=== PATIENT | male | born 1930 | race Caucasian/White ===

== ENCOUNTER 2017-01-25 09:53 | Inpatient (IN) | payer MEDICARE ==
[~2017-01-25] VITALS: Ht 190.5 cm; Wt 103.0 kg
[~2017-01-25 09:53] MED LIST: ACCUPRIL5 MG PO; AMOXICILLIN500 MG PO; ARAVA20 MG PO; BABY ASPIRIN81 MG PO; BACTRIM DS1 TAB PO; CALCIUM CHEL1 CAP OR; CEFEPIME2 G2 IV; CIPROFLOXACN500 MG PO; CLINDAMYCIN150 MG PO; CYANOCOBALAM1000 MC1 IM; CYANOCOBALAM1000 MCG IM; CYMBALTA20 MG PO; CYMBALTA60 MG PO; ENOXAPARIN40 MG/0.1 SC; EYE VITAMINS OR; FERROUS SULF325 M1 PO; FISH OIL1000 MG PO; FLORASTOR250 M1 PO; FLUZONE SPLT1 M1 IM; FOLIC ACID1 MG PO; HEPARIN IV; KEFLEX250 MG PO; LEFLUNOMIDE10 MG OR; LISINOP/HCTZ1 TA2 PO; LISINOPRIL10 MG PO; LORTAB 5/3255 MG PO; MAG-OXIDE400 MG PO; METFORMIN500 MG PO; METHOTREXATE2.5 MG PO; MILLIPRED5 MG PO; NIACIN500 M2 OR; NORMAL SALIN0.91; ONDANSETRON4 MG PO; PERCOCET 10/31 COMBO PO; PRESERVISION OR; PRILOSEC20 MG PO; ROCEPHIN 1 GM1 GM IM; STERAPRED OR; TAMSULOSIN0.4 MG PO; ULTRAM50 MG PO; VITAM PO; VITAMIN B-121000 MC1 SL; ZOSTAVAX IM; [UNRECOGNIZED DRUG - OTHER] IV
--- NOTE | 2017-01-25 10:07 | NUR ---
PATIENT TO ROOM VIA EMS AND PHYSICIAN AT BEDSIDE FOR EVALUATION
[2017-01-25] MEDS ORDERED: DOXYCYCLINE100 MG (10:18)
[2017-01-25] MEDS ORDERED: GLIPIZIDE ER5 M1 PO (10:19)
[2017-01-25] MEDS ORDERED: PRILOSEC20 MG PO (10:20)
[2017-01-25] MEDS ORDERED: TAMSULOSIN0.4 MG PO (10:21)
[2017-01-25 10:34] LABS: HEMATOCRIT 30.3 % (39.0-50.0); HEMOGLOBIN 9.9 g/dl (14.0-18.0); IMMATURE GRANULOCYTES 0.8 % (0.0-1.0); MEAN CELL VOLUME 101.3 fL CALC (80.0-100.0); MEAN CORPUSCULAR HGB 33.1 pG CALC (26.0-32.0); MEAN CORPUSCULAR HGB CONC 32.7 g/L CALC (32.0-36.0); NEUT# 16.93 thou/uL (1.82-7.42); RED BLOOD COUNT 2.99 mill/uL (4.70-6.10); RED CELL DISTRI WIDTH 15.2 % (11.5-15.5)
--- NOTE | 2017-01-25 10:58 | NUR ---
PT RETURNED FROM RADIOLOGY AWAITING TEST RESULTS. IV FLUIDS CONTINUE SITE HEALTHY.
[2017-01-25 11:02] LABS: ALBUMIN 3.6 g/dL (3.2-5.0); ALKALINE PHOSPHATASE 102 u/l (38-126); ANION GAP 19 (6-22 (CALC)); BILIRUBIN, TOTAL 0.5 mg/dL (0.0-1.4); BUN 51 mg/dL (8-23); BUN/CREATININE RATIO 34 (12-20 (CALC)); CARBON DIOXIDE 22 mmol/l (22-30); CHLORIDE 103 mmol/l (95-108); CREATININE 1.5 mg/dL (0.7-1.3); GFR 45 ML/MIN (>=60 (CALC)); GFR FOR AFR.AMER. 54 ML/MIN (>=60 (CALC)); GLUCOSE 124 mg/dL (82-115); POTASSIUM 4.9 mmol/l (3.5-5.1); SGOT/AST 26 u/l (19-48); SGPT/ALT 26 u/l (11-66); SODIUM 139 mmol/l (137-146)
[2017-01-25 11:14] LABS: MYOGLOBIN 125 ng/mL (0 - 121)
--- NOTE | 2017-01-25 11:40 | NUR ---
URINE SPECIMEN COLLECTED FROM URINAL. IV FLUIDS CONTINUE. TEMP TRENDING DOWN AT 101.2 TYMPANIC.
[2017-01-25 11:47] LABS: URINE BILIRUBIN - DIPSTICK NEGATIVE (NEGATIVE); URINE BLOOD DIPSTICK NEGATIVE (NEGATIVE); URINE CLARITY CLEAR; URINE COLOR YELLOW; URINE GLUCOSE - DIPSTICK NEGATIVE (NEGATIVE); URINE KETONE TRACE mg/dL (NEGATIVE); URINE LEUK ESTERASE NEGATIVE (NEGATIVE); URINE NITRITE - DIPSTICK NEGATIVE (Negative); URINE PH 5.5 (4.5-8.0); URINE PROTEIN - DIPSTICK NEGATIVE (NEG-TRACE); URINE UROBILINOGEN - DIPSTICK 0.2 E.U./dL (0.2)
--- NOTE | 2017-01-25 12:30 | NUR ---
PT REQUESTING PO FLUIDS. PT TOLERATED WELL.
--- NOTE | 2017-01-25 13:21 | NUR ---
SBAR PRINTED TO FLOOR
--- NOTE | 2017-01-25 13:30 | NUR ---
IV ABT INFUSING SITE HEALTHY. SPOUSE AT BEDSIDE.
--- NOTE | 2017-01-25 14:15 | NUR ---
REPORT CALLED TO MALIA STEPHEN.
--- NOTE | 2017-01-25 14:50 | NUR ---
PT TO ROOM VIA STRETCHER ACCOMPANIED BY STAFF; PT X3 PERSON TX TO BED; PT A/O X2; PT C/O PAIN 07/10 TO LEFT ANKLE DOES NOT WANT PAIN MED AT THIS TIME; PT STATES FALL AT HOME APPORX 2 WEEKS AGO; LLE WITH 4+ PE; O2 2L VIA NC; CRACKLES THROUGHOUT LUNGS; TELE MONITOR IN PLACE; PT ORIENTED TO ROOM AND CALL SYSTEM; CALL LEE WITHIN REACH; WILL CONTINUE TO MONITOR.
--- NOTE | 2017-01-25 15:13 | NUR ---
S: CATHERINE CHAN is a 86 M who presents with pneumonia. He has a history of arthritis, HTN, and COPD. All medications in patient's chart were reviewed. O: VS: BP 124/67, P 95 W 105 kg, HT 74 in, Scr 1.5, CrCl 42.6 mL/min A: Blood culture is pending. P: Patient received levofloxacin 750 mg IV x1 dose and Zosyn 3.375 g IV x1 dose in the ED. Pt is also on Zosyn 3.375 g IV q6h. Vancomycin ordered for pharmacy to dose. Start Vancomycin 1.5 g IV q24H. Vancomycin trough is drawn before the 4th dose on 01/28/17 @ 1530. Vancomycin goal trough is between 15-20 mcg/ml. Pharmacy will follow and or advise on antibiotics use as needed. Thanks for the consult.
[2017-01-25 15:40] VITALS: BP 104/65
--- NOTE | 2017-01-25 18:17 | NUR ---
DR. CARPIO CALLED CONCERNING CONSULT; STATES HE PLANS TO DO SX THIS Wednesday02/28/17;
[2017-01-25 19:20] VITALS: BP 132/80
--- NOTE | 2017-01-25 19:44 | NUR ---
PT IN BED A/O X3, REPIRATIONS EVEN AND UNLABORED. NS INFUSING TO RH AT 100CC/HR. AT BED SIDE, STATES PT RECEIVED 2L IV BOLUS IN ER AND HAS ONLY VOIDED 100ML, IS CONCERNED THAT PT NOT ABLE TO VOID. BLADDER SCANNER READING 911ML. DR. ORTIZ NOTIFED, NEW ORDERS RECEIVED FOR STRAIGHT CATH, AND BLADDER SCAN IN FOUR HOURS, IF NOT ABLE TO VOID AT THAT TIME INSERT BANUELOS CATHETER. STRAIGHT CATHED AT 2030 WITH 1050ML OUT PUT. WILL CONTINUE TO MONITOR. POSITIONED TO LEFT SIDE. PO FLUIDS IN REACH.
[2017-01-26] VITALS (7 sets, daily range): BP systolic 141–166; BP diastolic 74–84
--- NOTE | 2017-01-26 00:10 | NUR ---
COMPLETE BED BATH PROVIDED BY CHINO CASTELLANOS.
--- NOTE | 2017-01-26 02:00 | NUR ---
BLADDER SCANNER READING 415, PT DENIES NEED TO VOID, BUT REFUSES BANUELOS CATHETER AT THIS TIME, STATES WILL ATTEMPT TO VOID IN THE NEXT HOUR. WILL CONTINUE TO MONITOR.
--- NOTE | 2017-01-26 04:00 | NUR ---
PT UNABLE TO VOID, 16F BANUELOS CATHETER INSERTED, BALLOON INFLATED WITH 10CC SALINE, TOLERATED WELL. DRAINING 800ML CLEAR YELLOW URINE, LEG STRAP IN PLACE.
[2017-01-26 06:53] LABS: HEMATOCRIT 24.3 % (39.0-50.0); HEMOGLOBIN 8.1 g/dl (14.0-18.0); IMMATURE GRANULOCYTES 1.3 % (0.0-1.0); MEAN CELL VOLUME 100.4 fL CALC (80.0-100.0); MEAN CORPUSCULAR HGB 33.5 pG CALC (26.0-32.0); MEAN CORPUSCULAR HGB CONC 33.3 g/L CALC (32.0-36.0); NEUT# 19.42 thou/uL (1.82-7.42); RED BLOOD COUNT 2.42 mill/uL (4.70-6.10); RED CELL DISTRI WIDTH 14.9 % (11.5-15.5)
[2017-01-26 07:00] LABS: ANION GAP 15 (6-22 (CALC)); BUN 39 mg/dL (8-23); BUN/CREATININE RATIO 37 (12-20 (CALC)); CALCIUM 8.6 mg/dL (8.4-10.2); CARBON DIOXIDE 21 mmol/l (22-30); CHLORIDE 108 mmol/l (95-108); GFR > 60 ML/MIN (>=60 (CALC)); GFR FOR AFR.AMER. > 60 ML/MIN (>=60 (CALC)); GLUCOSE 155 mg/dL (82-115); HDL CHOLESTEROL 21 mg/dL (>=40); MAGNESIUM 1.8 mg/dL (1.6-2.3); POTASSIUM 4.5 mmol/l (3.5-5.1); SODIUM 140 mmol/l (137-146); VLDL CHOLESTROL 11 mg/dl (0-38 (CALC))
[2017-01-26 07:13] LABS: TOTAL TRIGLYCERIDES 56 mg/dl (30-149)
[2017-01-26 07:19] LABS: TOTAL CHOLESTEROL < 50 mg/dl (0-199)
--- NOTE | 2017-01-26 08:18 | NUR ---
PT.EATING BREAKFAST AT THIS TIME, DENIES ANY OTHER NEEDS. PT.V/S ASSESSED AND AM MEDICATIONS ADMINISTERED. PT.INSTRUCTED TO CALL FOR ANY NEEDS THAT MAY ARISE
--- NOTE | 2017-01-26 13:25 | NUR ---
PT.ARRIVED TO FLOOR IN GOOD CONDITION, ORIENTED TO ROOM,CALL SYSTEM, TV AND LIGHTS. WILL F/UP WITH ASSESSMENT AND ADMISSION
--- NOTE | 2017-01-26 13:37 | NUR ---
PT.IV FLUIDS REPLACED, PT.DENIES ANY NEEDS. BANUELOS CATHETER STRAP IN PLACE, SKIN INTACT AND DRAINING CLEAR YELLOW URINE; O2NC IN PLACE. IS AT BS AND CALL LIGHT W/IN REACH
--- NOTE | 2017-01-26 20:37 | NUR ---
PT POSITIONED TO LEFT SIDE ABLE TO ASSIST WITH TURNING, C/O GENERALIZED PAIN 6/10, MEDICATED WITH SCHEDULED ULTRAM AND FLEXERIL. LEGS ELEVATED ON PILLOWS, BANUELOS CATHETER DRAINING CLEAR YELLOW URINE. IV FLUIDS INFUSING TO RFA WITH NO COMPLICATIONS. ENCOURAGED TO USE CALL LIGHT FOR ASSISTANCE.
--- NOTE | 2017-01-27 00:59 | NUR ---
REPOSITIONED TO RIGHT SIDE, TELE READING SR 70'S OFFERS NO CONCERNS.
--- NOTE | 2017-01-27 03:00 | NUR ---
TURNED TO LEFT SIDE, RESPIRATIONS EVEN AND UNLABORED, CALL LIGHT IN REACH.
[2017-01-27 04:01] VITALS: BP 157/89
[2017-01-27 06:30] LABS: HEMATOCRIT 25.1 % (39.0-50.0); HEMOGLOBIN 8.5 g/dl (14.0-18.0); IMMATURE GRANULOCYTES 0.8 % (0.0-1.0); MEAN CELL VOLUME 99.2 fL CALC (80.0-100.0); MEAN CORPUSCULAR HGB 33.6 pG CALC (26.0-32.0); MEAN CORPUSCULAR HGB CONC 33.9 g/L CALC (32.0-36.0); NEUT# 15.26 thou/uL (1.82-7.42); RED BLOOD COUNT 2.53 mill/uL (4.70-6.10); RED CELL DISTRI WIDTH 14.6 % (11.5-15.5)
[2017-01-27 06:51] LABS: ANION GAP 15 (6-22 (CALC)); BUN 32 mg/dL (8-23); BUN/CREATININE RATIO 28 (12-20 (CALC)); CALCIUM 8.4 mg/dL (8.4-10.2); CARBON DIOXIDE 20 mmol/l (22-30); CHLORIDE 111 mmol/l (95-108); CREATININE 1.1 mg/dL (0.7-1.3); GFR > 60 ML/MIN (>=60 (CALC)); GFR FOR AFR.AMER. > 60 ML/MIN (>=60 (CALC)); GLUCOSE 129 mg/dL (82-115); MAGNESIUM 1.8 mg/dL (1.6-2.3); POTASSIUM 4.3 mmol/l (3.5-5.1); SODIUM 142 mmol/l (137-146)
[2017-01-27 08:10] VITALS: BP 142/77
--- NOTE | 2017-01-27 08:19 | NUR ---
PT.UPRIGHT IN BED W/FEET ELEVATED, LOCX3, AM MEDICATIONS ADMINISTERED AND V/S ASSESSED; PT. BREAKFAST HAS BEEN SET UP; PT.USED BED MORSE TO ATTEMPT BM, NO BM/CLUMP OF RED COAGULATED BLOOD ABOUT 4X2CM WAS IN THE BED MORSE WHEN EMPTIED. IV SITE APPEARS HEALTHY WITH IV FLUIDS RUNNING. PT.IS LEFT EATING BREAKFAST WITH CALL LIGHT NEXT TO HIM
--- NOTE | 2017-01-27 08:24 | NUR ---
PT.DID NOT TAKE ASPIRIN DUE TO UPCOMING SURGERY, STATED HE WAS TOLD NOT TO TAKE IT.
[2017-01-27 11:06] VITALS: BP 138/72
--- NOTE | 2017-01-27 13:05 | NUR ---
PT.UPRIGHT IN BED EATING LUNCH, PT.MEDICATED ORDERS PROVIDE, NEW FLUIDS AND ANTIBIOTIC THERAPY ADMINISTERED. PT.DENIES ANY OTHER NEEDS AT THIS TIME, IS AT BS
--- NOTE | 2017-01-27 14:13 | NUR ---
P.T. WORKED WITH PT. AND PT.IS NOW IN BED ASLEEP WITH IN CHAIR AT BS NAPPING ALSO. NO S/S OF DISTRESS OR PAIN
--- NOTE | 2017-01-27 14:22 | NUR ---
PT WAS SEEN SUPINE ON BED WITH L LEG ELEVATED ON PILLOWS. ADJUSTED THE BACK REST HIGHER. DID AAROM EX ON B UE ON ALL PPLANES. ALSO DID QUADS SETTING ON B LE AND ANKLE PUMPS ON R. PT STILL COMPLAINED OF SEVERE PAIN ON L LEG AND ANKLE WITH SLIGHT MOVEMENT. STATES THAT HIS ANKLE SURGERY WILL BE DONE ON WEDNESDAY. ADVISED TO ENCOURAGE PT TO ROLL AND CHANGE POSITIONS TO PREVENT BED SORES AND WORSENING OF PNEUMONIA.
[2017-01-27 15:33] VITALS: BP 136/67
--- NOTE | 2017-01-27 19:00 | NUR ---
RECEIVED CHANGE OF SHIFT REPORT FROM MALIA HENRIQUEZ. PATIENT RESTING IN BED AND APPEARS NOT TO BE IN ANY APPARENT ACUTE DISTRESS. WILL CONTINUE TO MONITOR.
[2017-01-27 20:00] VITALS: BP 149/79
[2017-01-27 23:30] VITALS: BP 112/61
--- NOTE | 2017-01-28 04:00 | NUR ---
PATIENT AWAKE AND ASSISTED UNTO BED MORSE. NO APPARENT ACUTE CHANGES NOTED IN PATIENT'S CONDITION.
--- NOTE | 2017-01-28 04:00 | NUR ---
PATIENT TRESTING WITH EYES CLOSED AND APPEARS TO BE ASLEEP. RESPIRATION EVEN AND UNLABORED. NO APPARENT ACUTE DISTRESS NOTED AT THIS TIME.
[2017-01-28 04:17] VITALS: BP 115/80
[2017-01-28 06:47] LABS: HEMATOCRIT 29.4 % (39.0-50.0); HEMOGLOBIN 9.6 g/dl (14.0-18.0); MEAN CELL VOLUME 98.7 fL CALC (80.0-100.0); MEAN CORPUSCULAR HGB 32.2 pG CALC (26.0-32.0); MEAN CORPUSCULAR HGB CONC 32.7 g/L CALC (32.0-36.0); RED BLOOD COUNT 2.98 mill/uL (4.70-6.10); RED CELL DISTRI WIDTH 14.7 % (11.5-15.5)
[2017-01-28 07:05] LABS: ANION GAP 17 (6-22 (CALC)); BUN 27 mg/dL (8-23); BUN/CREATININE RATIO 25 (12-20 (CALC)); CALCIUM 8.5 mg/dL (8.4-10.2); CARBON DIOXIDE 19 mmol/l (22-30); CHLORIDE 112 mmol/l (95-108); CREATININE 1.1 mg/dL (0.7-1.3); GFR > 60 ML/MIN (>=60 (CALC)); GFR FOR AFR.AMER. > 60 ML/MIN (>=60 (CALC)); GLUCOSE 149 mg/dL (82-115); POTASSIUM 4.3 mmol/l (3.5-5.1); SODIUM 144 mmol/l (137-146)
--- NOTE | 2017-01-28 07:10 | NUR ---
PT.SLEEPING WITH LIGHTS OUT AND C-PAP ON. NO S/S OF DISTRESS AT THIS TIME, CALL LIGHT AND BST W/IN REACH
[2017-01-28 07:50] VITALS: BP 153/90
--- NOTE | 2017-01-28 09:17 | NUR ---
PT.UPRIGHT IN BED WATCHING TV JUST FINISHED BREAKFAST. PT.V/S HAVE BEEN ASSESSED, AM MEDICATIONS ADMINISTERED. LEGS ELEVATED BILATERAL. DENIES PAIN AND DOES NOT APPEAR TO BE IN ANY DISTRESS AT THIS TIME. CALL LIGHT IS IN PLACE AND PT.WAS INSTRUCTED TO CALL IF ANY ASSISTANCE IS NEEDED
[2017-01-28 11:13] VITALS: BP 145/84
--- NOTE | 2017-01-28 12:11 | NUR ---
PATIENT SUPINE IN BED WITHL LE ELVATED ON PILLOWS, ANKLE/FOOT WITH SIGNIFICANT EDEMA. PATIENT REC'D FUNCTIONAL ACTIVITY OF BED MOBILITY. ATTMEPTING LATERAL SCOOTING WITH L LE SUPPORTED USING HALF BRIDGE. THIS REQUIRED MOD A FROM DATA INTEGRITY ANALYST WELL. UNABLE TO ACTIVELY FLEX HIP/KNEE FOR SEMIFOWLERS ON RIGHT, WITHOUT ASSIST. PATIENT ROLLED INTO MODIFIED RIGHT SIDELYING WITH MAX A OF 2. BED TURNED TO ENABLE VIEWING OF TELEVISION. TRAY AND CALL LEE IN REACH. NO C/O PAIN DURING ABOVE.
[2017-01-28 15:25] VITALS: BP 143/86
--- NOTE | 2017-01-28 16:27 | NUR ---
S: CATHERINE CHAN is a 86 M who presents with altered mental status. He has a history of arthritis, HTN, and COPD. All medications in patient's chart were reviewed. O: VS: BP 143/86, P 67, RR 18,T 98.5 Vanco trough (01/28/17 @ 1520): 9 mcg/mL W 103 kg, HT 74 in, Scr 1.1 A: Blood culture shows staph epidermidis which is sensitive to ciprofloxacin, clindamycin, gentamicin, and vanco. P: Patient is also on Zosyn 3.375 g IV q6h @ 0300, 0900, 1500, and 2100. Vancomycin ordered for pharmacy to dose. Increase Vancomycin to vancomycin 750 mg IV Q12H at 0800 and 2000. Vancomycin trough is drawn before the 4th dose on 01/30/17 @ 0730. Vancomycin goal trough is between 15-20 mcg/mL. Pharmacy will follow and or advise on antibiotics use as needed. Thank you for the consult.
--- NOTE | 2017-01-28 17:25 | NUR ---
PT.REPOSITIONED WITH PILLOWS, REPORTS BEING MUCH MORE COMFORTABLE AT THIS TIME. CALL LIGHT IS PLACED AT PT.SIDE ALONG WITH BST. ANTIBIOTIC THERAPY IS RUNNING
[2017-01-28 18:45] VITALS: BP 141/93
--- NOTE | 2017-01-28 19:00 | NUR ---
RECEIVED CHANGE OF SHIFT REPORT. PATIENT RESTING QUIETLY IN BED. NO VOICED COMPLQAINTS AT THIS TIME. WILL CONTINUE TO MONITOR.
[2017-01-28 23:45] VITALS: BP 147/89
--- NOTE | 2017-01-29 | NUR ---
NO APPARENT ACUTE CHANGES NOTED IN PT'S CONDITION AT THIS TIME.
[2017-01-29 03:25] VITALS: BP 140/83
--- NOTE | 2017-01-29 04:00 | NUR ---
NO APPARENT ACUTE CHANGES NOTED IN PATIENT'S CONDITION.
[2017-01-29 07:00] LABS: HEMATOCRIT 31.5 % (39.0-50.0); HEMOGLOBIN 10.2 g/dl (14.0-18.0); IMMATURE GRANULOCYTES 1.1 % (0.0-1.0); MEAN CORPUSCULAR HGB 32.7 pG CALC (26.0-32.0); MEAN CORPUSCULAR HGB CONC 32.4 g/L CALC (32.0-36.0); NEUT# 6.34 thou/uL (1.82-7.42); RED BLOOD COUNT 3.12 mill/uL (4.70-6.10); RED CELL DISTRI WIDTH 14.7 % (11.5-15.5)
[2017-01-29 07:12] LABS: ANION GAP 15 (6-22 (CALC)); BUN 26 mg/dL (8-23); BUN/CREATININE RATIO 25 (12-20 (CALC)); CALCIUM 8.6 mg/dL (8.4-10.2); CARBON DIOXIDE 19 mmol/l (22-30); CHLORIDE 110 mmol/l (95-108); GFR > 60 ML/MIN (>=60 (CALC)); GFR FOR AFR.AMER. > 60 ML/MIN (>=60 (CALC)); GLUCOSE 146 mg/dL (82-115); POTASSIUM 4.4 mmol/l (3.5-5.1); SODIUM 140 mmol/l (137-146)
[2017-01-29 07:49] VITALS: BP 156/94
[2017-01-29 11:00] VITALS: BP 160/97
--- NOTE | 2017-01-29 12:55 | NUR ---
BANUELOS REMOVED; EMPTIED 200 ML OF CLOUDY YELLOW URINE; SON IN ROOM; CALL LEE WITHIN REACH; WILL CONTINUE TO MONITOR
--- NOTE | 2017-01-29 13:27 | NUR ---
REPORT CALLED TO LEVY CHAN RN AT [facility]
--- NOTE | 2017-01-29 13:33 | NUR ---
Discharge instructions given. Patient verbalizes understanding of same. Discharged in stable condition via Medical Transport to [facility] with [facility]. All belongings sent with pt.
== END 2017-01-29 13:28 | DRG 871 ==
LOC: ED 09:53 → ED-I 12:55 → ED 13:09 → MS2 13:10
PROVIDERS: Emergency Medicine; Nurse Practitioner Family; ADMIT Internal Medicine; ATTEND Internal Medicine
DX: A41.9 Sepsis, unspecified organism (principal); G93.41 Metabolic encephalopathy; I21.4 Non-ST elevation (NSTEMI) myocardial infarction; N17.9 Acute kidney failure, unspecified; J18.9 Pneumonia, unspecified organism; J44.0 Chronic obstructive pulmonary disease with (acute) lower respiratory infection; E86.0 Dehydration; E11.42 Type 2 diabetes mellitus with diabetic polyneuropathy; S82.852A Displaced trimalleolar fracture of left lower leg, initial encounter for closed fracture; D53.9 Nutritional anemia, unspecified; R65.20 Severe sepsis without septic shock; I10 Essential (primary) hypertension; G89.4 Chronic pain syndrome; R91.1 Solitary pulmonary nodule; M19.90 Unspecified osteoarthritis, unspecified site; K21.9 Gastro-esophageal reflux disease without esophagitis; E78.5 Hyperlipidemia, unspecified; D63.8 Anemia in other chronic diseases classified elsewhere; M06.9 Rheumatoid arthritis, unspecified; W19.XXXA Unspecified fall, initial encounter; Y92.89 Other specified places as the place of occurrence of the external cause; Z87.891 Personal history of nicotine dependence; Z79.84 Long term (current) use of oral hypoglycemic drugs; Z89.422 Acquired absence of other left toe(s); Z82.49 Family history of ischemic heart disease and other diseases of the circulatory system
CPT/HCPCS: J3370

== ENCOUNTER 2017-03-11 14:27 | Observation (INO) | payer MEDICARE ==
[~2017-03-11] VITALS: Ht 190.5 cm; Wt 89.4 kg
[~2017-03-11 14:27] MED LIST changes: +DOXYCYCLINE100 MG; +GLIPIZIDE ER5 M1 PO
[2017-03-11] MEDS ORDERED: LYRICA50 MG PO (15:06)
[2017-03-11] MEDS ORDERED: MULTIVITAMI1 PO (15:06)
[2017-03-11 16:08] LABS: HEMATOCRIT 31.7 % (39.0-50.0); HEMOGLOBIN 9.7 g/dl (14.0-18.0); IMMATURE GRANULOCYTES 1.2 % (0.0-1.0); MEAN CELL VOLUME 101.3 fL CALC (80.0-100.0); MEAN CORPUSCULAR HGB CONC 30.6 g/L CALC (32.0-36.0); NEUT# 10.62 thou/uL (1.82-7.42); RED BLOOD COUNT 3.13 mill/uL (4.70-6.10); RED CELL DISTRI WIDTH 16.9 % (11.5-15.5)
[2017-03-11 16:23] LABS: ALBUMIN 3.4 g/dL (3.2-5.0); BILIRUBIN, TOTAL 0.4 mg/dL (0.0-1.4); CALCIUM 8.8 mg/dL (8.4-10.2); CREATININE 1.5 mg/dL (0.7-1.3); POTASSIUM 5.1 mmol/l (3.5-5.1); TOTAL PROTEIN 6.5 g/dL (6.3-8.2)
[2017-03-11 18:09] LABS: URINE BILIRUBIN - DIPSTICK NEGATIVE (NEGATIVE); URINE BLOOD DIPSTICK LARGE (NEGATIVE); URINE CLARITY CLEAR; URINE COLOR YELLOW; URINE GLUCOSE - DIPSTICK NEGATIVE (NEGATIVE); URINE KETONE NEGATIVE (NEGATIVE); URINE LEUK ESTERASE NEGATIVE (NEGATIVE); URINE NITRITE - DIPSTICK NEGATIVE (Negative); URINE PROTEIN - DIPSTICK NEGATIVE (NEG-TRACE); URINE UROBILINOGEN - DIPSTICK 0.2 E.U./dL (0.2)
[2017-03-11 18:15] LABS: URINE WBC 0-2 WBC/hpf (0-5)
[2017-03-11 19:30] VITALS: BP 101/65
[2017-03-11 22:39] VITALS: BP 115/69
[2017-03-12] VITALS (14 sets, daily range): BP systolic 88–119; BP diastolic 54–75
[2017-03-12 05:27] LABS: ANION GAP 14 (6-22 (CALC)); BUN 42 mg/dL (8-23); BUN/CREATININE RATIO 36 (12-20 (CALC)); CALCIUM 8.6 mg/dL (8.4-10.2); CARBON DIOXIDE 23 mmol/l (22-30); CHLORIDE 109 mmol/l (95-108); CREATININE 1.1 mg/dL (0.7-1.3); GFR > 60 ML/MIN (>=60 (CALC)); GFR FOR AFR.AMER. > 60 ML/MIN (>=60 (CALC)); GLUCOSE 94 mg/dL (82-115); POTASSIUM 4.7 mmol/l (3.5-5.1); SODIUM 141 mmol/l (137-146)
[2017-03-12 05:32] LABS: HEMATOCRIT 28.5 % (39.0-50.0); HEMOGLOBIN 8.9 g/dl (14.0-18.0); MEAN CORPUSCULAR HGB 30.9 pG CALC (26.0-32.0); MEAN CORPUSCULAR HGB CONC 31.2 g/L CALC (32.0-36.0); RED BLOOD COUNT 2.88 mill/uL (4.70-6.10); RED CELL DISTRI WIDTH 16.8 % (11.5-15.5)
[2017-03-12 06:23] LABS: C. DIFFICILE TOXIN A&B NEGATIVE (NEGATIVE)
[2017-03-13 03:53] VITALS: BP 105/64
[2017-03-13 05:54] LABS: HEMATOCRIT 25.3 % (39.0-50.0); MEAN CELL VOLUME 98.4 fL CALC (80.0-100.0); MEAN CORPUSCULAR HGB 31.1 pG CALC (26.0-32.0); MEAN CORPUSCULAR HGB CONC 31.6 g/L CALC (32.0-36.0); RED BLOOD COUNT 2.57 mill/uL (4.70-6.10); RED CELL DISTRI WIDTH 16.6 % (11.5-15.5)
[2017-03-13 06:08] LABS: ANION GAP 13 (6-22 (CALC)); BUN 28 mg/dL (8-23); BUN/CREATININE RATIO 32 (12-20 (CALC)); CALCIUM 8.1 mg/dL (8.4-10.2); CARBON DIOXIDE 22 mmol/l (22-30); CHLORIDE 108 mmol/l (95-108); CREATININE 0.9 mg/dL (0.7-1.3); GFR > 60 ML/MIN (>=60 (CALC)); GFR FOR AFR.AMER. > 60 ML/MIN (>=60 (CALC)); GLUCOSE 78 mg/dL (82-115); POTASSIUM 4.4 mmol/l (3.5-5.1); SODIUM 138 mmol/l (137-146)
[2017-03-13 08:16] VITALS: BP 133/78
[2017-03-13 11:17] VITALS: BP 142/83
[2017-03-13] MEDS ORDERED: FERROUS SULF324 M1 PO (12:52)
== END 2017-03-13 13:30 ==
LOC: ED 14:27 → ED-I 17:52 → ED 18:10 → ICU 18:11 → MS2 03-12 19:00
PROVIDERS: Emergency Medicine; ADMIT Internal Medicine; ATTEND Internal Medicine
DX: N17.9 Acute kidney failure, unspecified (principal); J44.9 Chronic obstructive pulmonary disease, unspecified; E11.9 Type 2 diabetes mellitus without complications; E86.0 Dehydration; D64.9 Anemia, unspecified; I10 Essential (primary) hypertension; I25.2 Old myocardial infarction; K21.9 Gastro-esophageal reflux disease without esophagitis; M19.90 Unspecified osteoarthritis, unspecified site; M06.9 Rheumatoid arthritis, unspecified; N40.1 Benign prostatic hyperplasia with lower urinary tract symptoms; R33.8 Other retention of urine; Z87.891 Personal history of nicotine dependence; Z79.84 Long term (current) use of oral hypoglycemic drugs; Z98.890 Other specified postprocedural states; R94.31 Abnormal electrocardiogram [ECG] [EKG]
CPT/HCPCS: G0378

== ENCOUNTER 2017-11-25 08:13 | Emergency (ER) | payer OTHER, MEDICARE ==
[~2017-11-25] VITALS: Ht 190.5 cm; Wt 95.0 kg
[~2017-11-25 08:13] MED LIST changes: +FERROUS SULF324 M1 PO; +LYRICA50 MG PO; +MULTIVITAMI1 PO
[2017-11-25 11:03] VITALS: BP 133/78
== END 2017-11-25 11:03 | disposition short-term general hospital (02) | DRG 534 ==
LOC: ED 08:13
DX: S72.401A Unspecified fracture of lower end of right femur, initial encounter for closed fracture (principal); G82.20 Paraplegia, unspecified; V48.9XXA Unspecified car occupant injured in noncollision transport accident in traffic accident, initial encounter; Z96.653 Presence of artificial knee joint, bilateral

== ENCOUNTER 2019-05-20 | Emergency (ER) | payer OTHER, MEDICARE ==
[2019-05-20 17:09] LABS: IMMATURE GRANULOCYTES 0.8 % (0.0-5.0); MEAN CORPUSCULAR HGB 32.6 pG CALC (26.0-32.0); MEAN CORPUSCULAR HGB CONC 32.6 g/L CALC (32.0-36.0); NEUT# 4.78 thou/uL (1.82-7.42); RED BLOOD COUNT 3.37 mill/uL (4.70-6.10); RED CELL DISTRI WIDTH 18.5 % (11.5-15.5)
[2019-05-20 17:13] LABS: HEMATOCRIT 33.7 % (39.0-50.0)
[2019-05-20 17:21] LABS: ALBUMIN 3.6 g/dL (3.2-5.0); ALKALINE PHOSPHATASE 97 u/l (38-126); AMYLASE 39 u/l (30-110); BILIRUBIN, TOTAL 0.5 mg/dL (0.0-1.4); BUN 16 mg/dL (8-23); BUN/CREATININE RATIO 22 (12-20 (CALC)); CHLORIDE 104 mmol/l (95-108); CREATININE 0.7 mg/dL (0.7-1.3); GFR > 60 ML/MIN (>=60 (CALC)); GFR FOR AFR.AMER. > 60 ML/MIN (>=60 (CALC)); LIPASE 20 u/l (23-300); SGOT/AST 25 u/l (19-48); SODIUM 135 mmol/l (137-146)
[2019-05-20 17:33] LABS: ANION GAP 16 (6-22 (CALC)); CARBON DIOXIDE 18 mmol/l (22-30); MYOGLOBIN 39 ng/mL (0 - 121); POTASSIUM 3.3 mmol/l (3.5-5.1)
[2019-05-20 18:20] LABS: URINE BLOOD DIPSTICK NEGATIVE (NEGATIVE); URINE COLOR YELLOW; URINE GLUCOSE - DIPSTICK NEGATIVE (NEGATIVE); URINE KETONE TRACE mg/dL (NEGATIVE); URINE NITRITE - DIPSTICK NEGATIVE (Negative); URINE PH >=9.0 (4.5-8.0); URINE PROTEIN - DIPSTICK >=300 mg/dL (NEG-TRACE); URINE SPECIFIC GRAVITY <=1.005
[2019-05-20 18:26] LABS: URINE BILIRUBIN - DIPSTICK SMALL (NEGATIVE); URINE LEUK ESTERASE LARGE (NEGATIVE)
[2019-05-20 18:29] LABS: URINE SQUAMOUS EPITHELIAL CELL FEW EPI/hpf (0-FEW); URINE WBC TNTC WBC/hpf (0-5)
[2019-05-20 18:30] LABS: URINE BACTERIA MODERATE hpf
[2019-05-20 18:32] LABS: URINE URIC ACID CRYSTALS MANY lpf
[2019-05-20 18:33] LABS: URINE AMORPH SEDIMENT MODERATE hpf (NONE-FER)
[2019-05-20] MEDS ORDERED: BACTRIM DS1 TAB PO ×2 (20:15→20:17)
[2019-05-20] MEDS ORDERED: PHENERGAN25 MG/TAB PO ×2 (20:15→20:17)
== END 2019-05-20 20:29 | disposition home or self-care (01) | DRG 690 ==
PROVIDERS: Emergency Medicine
DX: N39.0 Urinary tract infection, site not specified (principal); E86.0 Dehydration; G71.00 Muscular dystrophy, unspecified; I10 Essential (primary) hypertension; J44.9 Chronic obstructive pulmonary disease, unspecified; E11.9 Type 2 diabetes mellitus without complications; B96.4 Proteus (mirabilis) (morganii) as the cause of diseases classified elsewhere
CPT/HCPCS: Q9967

== ENCOUNTER 2019-10-03 08:33 | Emergency (ER) | payer OTHER, MEDICARE ==
[~2019-10-03 08:33] MED LIST changes: +PHENERGAN25 MG/TAB PO
[2019-10-03 09:10] LABS: HEMATOCRIT 33.7 % (39.0-50.0); IMMATURE GRANULOCYTES 5.1 % (0.0-5.0); MEAN CORPUSCULAR HGB 32.6 pG CALC (26.0-32.0); MEAN CORPUSCULAR HGB CONC 32.6 g/dL CAL (32.0-36.0); NEUT# 4.77 thou/uL (1.82-7.42); RED BLOOD COUNT 3.37 mill/uL (4.70-6.10); RED CELL DISTRI WIDTH 16.8 % (11.5-15.5)
[2019-10-03 10:26] LABS: ALKALINE PHOSPHATASE 79 u/l (38-126); ANION GAP 16 (6-22 (CALC)); BILIRUBIN, TOTAL 0.7 mg/dL (0.0-1.4); BUN 17 mg/dL (8-23); BUN/CREATININE RATIO 24 (12-20 (CALC)); CARBON DIOXIDE 18 mmol/l (22-30); CHLORIDE 101 mmol/l (95-108); CREATININE 0.7 mg/dL (0.7-1.3); GFR > 60 ML/MIN (>=60 (CALC)); GFR FOR AFR.AMER. > 60 ML/MIN (>=60 (CALC)); LIPASE 65 u/l (23-300); POTASSIUM 3.6 mmol/l (3.5-5.1); SGOT/AST 37 u/l (19-48); SODIUM 132 mmol/l (137-146)
[2019-10-03 10:27] LABS: ALBUMIN 2.8 g/dL (3.2-5.0); TOTAL PROTEIN 5.4 g/dL (6.3-8.2)
[2019-10-03 11:02] VITALS: BP 71/52
[2019-10-03 11:17] VITALS: BP 115/75
== END 2019-10-03 11:35 | disposition short-term general hospital (02) | DRG 377 ==
LOC: ED 08:33
PROVIDERS: Family Medicine
PROC: 05HM33Z Insertion of Infusion Device into Right Internal Jugular Vein, Percutaneous Approach (ICD-10-PCS; principal; 2019-10-03)
PROC: 30233N1 Transfusion of Nonautologous Red Blood Cells into Peripheral Vein, Percutaneous Approach (ICD-10-PCS; 2019-10-03)
DX: K92.1 Melena (principal); I21.4 Non-ST elevation (NSTEMI) myocardial infarction; U07.1 COVID-19; G82.20 Paraplegia, unspecified; I10 Essential (primary) hypertension; J44.9 Chronic obstructive pulmonary disease, unspecified
CPT/HCPCS: J0131; P9016; S0164

== ENCOUNTER 2020-01-26 09:37 | Inpatient (IN) | payer OTHER, MEDICARE ==
[~2020-01-26] VITALS: Ht 190.5 cm; Wt 93.2 kg
--- NOTE | 2020-01-26 09:37 | NUR ---
PATIENT TO ROOM VIA EMS STRETCHER.
--- NOTE | 2020-01-26 09:45 | NUR ---
ABD DISTENDED AND TENDER TO PALPATION. LAST BM WAS YESTERDAY AND WAS LOOSE. PT HAS HISTORY OF IBS. URINE SAMPLE COLLECTED FROM PORT IN INDWELLING CATHETER. PORT WAS CLEANED WITH ALCOHOL. URINE IS CORTEZ IN COLOR WITH SEDEMENT.
--- NOTE | 2020-01-26 10:15 | NUR ---
JASON REEVES APRN, [facility]. SHE REPORTS PT HAS HISTORY OF RECURRENT UTI, ANEMIA, ACUTE KIDNEY INJURY, SEPSIS AND WAS COVID POSITIVE A FEW MONTHS PRIOR. PATIENT HAD A POSITIVE URINE CULTURE 1 MONTH PRIOR AND WAS NOT TREATED WITH ANTIBIOTICS. URINE SAMPLE WAS COLLECTED 3 DAYS PRIOR AND HAS WORSENED. SHE WILL BE FAXING OVER H&P AND RECENT LAB WORK.
[2020-01-26 10:23] LABS: HEMATOCRIT 32.2 % (39.0-50.0); HEMOGLOBIN 10.3 g/dl (14.0-18.0); IMMATURE GRANULOCYTES 0.5 % (0.0-5.0); MEAN CELL VOLUME 105.9 fL CALC (80.0-100.0); MEAN CORPUSCULAR HGB 33.9 pG CALC (26.0-32.0); NEUT# 9.19 thou/uL (1.82-7.42); RED BLOOD COUNT 3.04 mill/uL (4.70-6.10); RED CELL DISTRI WIDTH 15.8 % (11.5-15.5)
[2020-01-26 10:32] LABS: ALBUMIN 3.2 g/dL (3.2-5.0); ALKALINE PHOSPHATASE 107 u/l (38-126); BILIRUBIN, TOTAL 0.5 mg/dL (0.0-1.4); BUN 30 mg/dL (8-23); BUN/CREATININE RATIO 50 (12-20 (CALC)); CHLORIDE 101 mmol/l (95-108); CREATININE 0.6 mg/dL (0.7-1.3); GFR > 60 ML/MIN (>=60 (CALC)); GFR FOR AFR.AMER. > 60 ML/MIN (>=60 (CALC)); LIPASE 20 u/l (23-300); POTASSIUM 4.3 mmol/l (3.5-5.1); SGOT/AST 38 u/l (19-48); SODIUM 134 mmol/l (137-146); TOTAL PROTEIN 6.1 g/dL (6.3-8.2)
[2020-01-26 10:34] LABS: AMYLASE < 30 u/l (30-110); ANION GAP 13 (6-22 (CALC)); CARBON DIOXIDE 24 mmol/l (22-30)
[2020-01-26] MEDS ORDERED: B-121000 MC1 PO (10:42)
[2020-01-26 10:43] LABS: MYOGLOBIN 24 ng/mL (0 - 121)
[2020-01-26] MEDS ORDERED: PRESERVISION AREDS 2 PO (10:43)
[2020-01-26] MEDS ORDERED: CALCIUM 600 +600 MG PO (10:46)
[2020-01-26] MEDS ORDERED: LISINOPRIL2.5 MG PO (10:46)
[2020-01-26] MEDS ORDERED: HM MAGNESIUM400 MG PO (10:48)
[2020-01-26] MEDS ORDERED: PAIN RELIEF EX500 M2 PO (10:49)
[2020-01-26] MEDS ORDERED: LYRICA25 MG PO (10:49)
[2020-01-26] MEDS ORDERED: FE TABS325 MG PO (10:50)
[2020-01-26 10:51] LABS: URINE BLOOD DIPSTICK MODERATE (NEGATIVE); URINE COLOR YELLOW; URINE GLUCOSE - DIPSTICK NEGATIVE (NEGATIVE); URINE KETONE TRACE mg/dL (NEGATIVE); URINE PH 5.5 (4.5-8.0); URINE PROTEIN - DIPSTICK 30 mg/dL (NEG-TRACE); URINE SPECIFIC GRAVITY >=1.030; URINE UROBILINOGEN - DIPSTICK 0.2 E.U./dL (0.2)
[2020-01-26] MEDS ORDERED: ANTI-DIARRHE2 M1 PO (10:51)
[2020-01-26] MEDS ORDERED: ASPIRIN ADULT L81 M2 PO (10:52)
[2020-01-26] MEDS ORDERED: VITAMIN D1000 UNIT PO (10:53)
[2020-01-26 10:54] LABS: URINE LEUK ESTERASE SMALL (NEGATIVE); URINE NITRITE - DIPSTICK POSITIVE (Negative)
[2020-01-26] MEDS ORDERED: CRANBERR3 PO (10:54)
[2020-01-26] MEDS ORDERED: TRAMADOL HCL50 MG PO (10:55)
[2020-01-26 10:57] LABS: URINE BACTERIA RARE hpf; URINE BILIRUBIN - DIPSTICK NEGATIVE (NEGATIVE); URINE EPITHELIAL CELLS RARE EPI/hpf (0-FEW); URINE MUCUS FEW hpf (NONE-FEW)
[2020-01-26] MEDS ORDERED: CYANOCOBAL1000 MCG/M IM (10:57)
--- NOTE | 2020-01-26 11:00 | NUR ---
PATIENT RESTING IN STRETCHER WITH EYES CLOSED AND AWAKENS TO VERBAL STIMULI. PATIENT DENIES ANY ABDOMINAL PAIN OR NAUSEA AT THIS TIME. REMAINS AT BEDSIDE.
--- NOTE | 2020-01-26 11:40 | NUR ---
PATIENT RETURNED FROM CT, IV FLUIDS AND ANTIBIOTS INFUSING WITH NO DIFFICULTY. PT DENIES ANY PAIN OR NAUSEA AT THIS TIME. CALL ROSA GONCALVES.
--- NOTE | 2020-01-26 12:40 | NUR ---
PATIENT AND AWARE OF PENDING ADMISSION AND WAIT TIME. PATIENT DENIES ANY NEEDS AT THIS TIME. CALL LEE WITHIN REACH.
--- NOTE | 2020-01-26 13:40 | NUR ---
PATIENT RESTING IN STRETCHER WITH EYES CLOSED AND REMAINS PAIN FREE. CALL LEE WITHIN REACH.
--- NOTE | 2020-01-26 14:44 | NUR ---
REPORT CALLED TO JULIETA ROSS.
[2020-01-26 15:00] VITALS: BP 133/80
--- NOTE | 2020-01-26 15:00 | NUR ---
Admission Note Report Given to: JULIETA ROSS Transported by: Wheelchair X Stretcher Transported with: X Nurse Transporter X Patent IV O2 X Red Cap Location: ICU X MS2 PATIENT TO ROOM 266 ON TELE MONITOR IN STABLE CONDIITON. CARE RELINQUISHED TO JULIETA ROSS.
--- NOTE | 2020-01-26 15:10 | NUR ---
PT ARRIVED FROM ER VIA STRETCHER ACCOMAPNIED BY STAFF.
--- NOTE | 2020-01-26 15:30 | NUR ---
ASSESSMENT IS COMPLETED: IV SITE IS FREE FROM REDNESS OR EDEMA. HR IS REG,PULSES ARE STRONG X4, ABD IS SOFT AND DISTENDED , TENDER ON THE R SIDE. SKIN IS COLD. BREATH SOUNDS ARE CLEAR,BILATERALLY, TOOK 4 PEOPLE TO MOVE FROM THE STRETCHER TO THE BED. BANUELOS DRAINING YELLOW URINE. TELE MONITOR IN PLACE. CONTINUE TO OBSERVE AND MONITOR.
--- NOTE | 2020-01-26 16:30 | NUR ---
FAMILY CAME AND BROUGHT HIS PHONE AND UPPER DENTURE. ENCOURAGED TO CALL ANY TIME IF NEED ANYTHING. ALSO PT DOESN'T WANT ANY DRASTIC MEASURES.
--- NOTE | 2020-01-26 19:30 | NUR ---
REPORT RECEIVED FROM Myra AMES LPN, CARE OF PT ASSUMED AT THIS TIME.
[2020-01-26 19:37] VITALS: BP 136/79
--- NOTE | 2020-01-26 20:35 | NUR ---
PT'S JERICHO CHAN CALLS . REPORTS HER IS UPSET BECAUSE HE THINKS HE HAS COVID AGAIN AND HIS ABD PAIN IS UNRELIEVED. ASSURED HER WOULD BE CONSULTING WITH DOCTOR FOR PAIN RELIEF OPTIONS AND WILL BE PROVIDING EDUCATION REGARDING COVID.
--- NOTE | 2020-01-26 20:49 | NUR ---
SPOKE WITH DR. ABREU REGARDING PTS ABD PAIN AND PREVIOUS SENSITIVITIES. ORDER FOR TRAMADOL RECEIVED.
--- NOTE | 2020-01-26 21:40 | NUR ---
PHYSICAL ASSESMENT COMPLETE. PT RESTING IN BED, WATCHING TV. SCHEDULED MEDICATIONS ADMINISTERED, PRN TRAMADOL ADMINISTERED FOR REPORTS OF ABD PAIN. SEE E-MAR. EDUCATION ON POSITIVE IgG V.S. POSITIVE COVID DIAGNOSIS. PT VERBALIZES UNDERSTANDING AND EXPRESSES RELIEF. PLAN OF CARE REVIEWED, PT VERBALIZES UNDERSTANDING AND DENIES QUESTIONS. CALL LEE WITHIN REACH, AGREES TO CALL PRN.
--- NOTE | 2020-01-27 00:18 | NUR ---
PT APPEARS TO BE SLEEPING COMFORTABLY, NO APPARENT DISTRESS, RESPIRATIONS REGULAR AND UNLABORED. ITEMS REMAIN WITHIN REACH, BED REMAINS LOCKED IN LOW POSITION W/ BEDRAILS UP X2. CALL LEE REMAINS WITHIN REACH.
[2020-01-27 04:30] VITALS: BP 129/76
--- NOTE | 2020-01-27 04:53 | NUR ---
PT LAYING IN BED, EATCHING TV. DENIES NEEDS AT THIS TIME. CALL LEE WITHIN REACH, AGREES TO CALL PRN.
[2020-01-27 05:49] LABS: HEMATOCRIT 29.8 % (39.0-50.0); HEMOGLOBIN 9.4 g/dl (14.0-18.0); IMMATURE GRANULOCYTES 0.7 % (0.0-5.0); MEAN CELL VOLUME 106.8 fL CALC (80.0-100.0); MEAN CORPUSCULAR HGB 33.7 pG CALC (26.0-32.0); MEAN CORPUSCULAR HGB CONC 31.5 g/dL CAL (32.0-36.0); NEUT# 6.61 thou/uL (1.82-7.42); RED BLOOD COUNT 2.79 mill/uL (4.70-6.10); RED CELL DISTRI WIDTH 15.6 % (11.5-15.5)
[2020-01-27 06:06] LABS: ALBUMIN 2.7 g/dL (3.2-5.0); ALKALINE PHOSPHATASE 94 u/l (38-126); ANION GAP 13 (6-22 (CALC)); BILIRUBIN, TOTAL 0.4 mg/dL (0.0-1.4); BUN 21 mg/dL (8-23); BUN/CREATININE RATIO 34 (12-20 (CALC)); CARBON DIOXIDE 23 mmol/l (22-30); CHLORIDE 103 mmol/l (95-108); CREATININE 0.6 mg/dL (0.7-1.3); GFR > 60 ML/MIN (>=60 (CALC)); GFR FOR AFR.AMER. > 60 ML/MIN (>=60 (CALC)); POTASSIUM 4.1 mmol/l (3.5-5.1); SGOT/AST 35 u/l (19-48); SODIUM 135 mmol/l (137-146); TOTAL PROTEIN 5.3 g/dL (6.3-8.2)
[2020-01-27 08:20] VITALS: BP 136/83
--- NOTE | 2020-01-27 08:20 | NUR ---
ASSESSMENT IS COMPLETED: IV SITE IS FREE FROM REDNESS OR EDEMA. HR IS REG,PULSES ARE STRONG X4, ABD IS SOFT WITH ACTIVE BS. BREATH SOUNDS ARE CLEAR,BILATERALLY. BANUELOS DRAINING YELLOW URINE. PT HAD A LARGE LOOSE STOOL THIS AM. CONTINUE TO OSBERVE AND MONITOR.
--- NOTE | 2020-01-27 09:45 | NUR ---
DR CABRERA IN TO VISIT WITH PT PLACED ON A DIET
--- NOTE | 2020-01-27 10:15 | NUR ---
DR ABREU IN TO VISIT WITH PT. WANTING PT MOVED TO A REGULAR ROOM. DUE TO NO SYMPTOMS OF THE COVID.
[2020-01-27 10:30] VITALS: BP 120/76
--- NOTE | 2020-01-27 12:15 | NUR ---
PT IS RELAXING IN BED WITH NO DISTRESS NOTED. IV SITE IS FREE FROM REDNESS OR EDEMA.
--- NOTE | 2020-01-27 14:55 | NUR ---
LEFT A MESSAGE FOR PT'S . MOVED PT TO ROOM [address] ABREU REQUEST. IV SITE IS FREE FROM REDNESS OR EDEMA.
[2020-01-27 15:00] VITALS: BP 130/73
--- NOTE | 2020-01-27 16:30 | NUR ---
PT IS VISITING WITH HIS SPOUSE. IV SITE IS FREE FROM REDNESS OR EDEMA. CONTINUE TO OBSERVE AND MONITOR.
[2020-01-27 19:00] VITALS: BP 141/87
--- NOTE | 2020-01-27 19:23 | NUR ---
PT IS UPRIGHT IN BED W/TV ON AND LIGHTS ON LOW. PT DENIES ANY NEEDS AT THIS TIME. I NOTICED THAT WATER PITCHER WAS TIPPED OVER AND EMPTY AND CUP ON THE FLOOR. PT PROVIDED WITH FRESH WATER AND CUP. PT ENCOURAGED TO CALL ANY OTHER NEEDS ARISE. CALL LIGHT W/IN REACH.
--- NOTE | 2020-01-27 20:08 | NUR ---
REPORT RECEIVED FROM RN. ASSESSMENT AND VITALS COMPLETED: PT RESTING IN BED SUPINE; PT ALERT AND ORIENTED. PT DENIES PAIN. IV SITE IS FREE FROM REDNESS OR EDEMA; NS RUNNING AT 75 LPH. HR IS REG, PULSES ARE STRONG X4, ABD IS SOFT WITH ACTIVE BS. BREATH SOUNDS ARE CLEAR, BILATERALLY. BANUELOS DRAINING YELLOW URINE. PT DENIES PAIN RESPIRATIONS EVEN AND UNLABORED ON ROOM AIR AT REST; TELEMENTRY IN PLACE WITH A 1 DEGREE BLOCK AND PVCS; PT ENCOURAGED TO VERBALIZE CONCERNS. STATES UNDERSTANDING. SAFETY MEASURES IN PLACE. CALL LIGHT WITHIN REACH.
[2020-01-28] VITALS: BP 121/81
--- NOTE | 2020-01-28 00:02 | NUR ---
PATIENT RESTING SOUNDLY IN BED WITH EYES CLOSED AT THIS TIME. IV SITE PATENT FLUSHES WELL; SITE UNREMARKABLE, NS INFUSING @ 75ML.HR WITHOUT DIFFICULTY--TOLERATING FLUIDS WELL. CALL LEE WITHIN REACH. NO APPARENT DISTRESS NOTED. WILL CONTINUE TO MONITOR FOR ANY FURTHER CHANGES.
[2020-01-28 04:00] VITALS: BP 135/98
--- NOTE | 2020-01-28 04:02 | NUR ---
PHYSICAL ASSESSMENT REMAINS UNCHANGED FROM THE BEGINNING OF THE SHIFT. PT RESTING QIETLY WITH NO STATED NNEDS OR REQUESTS. PEERSONAL ITEMS AND CALL LEE ARE WITHIN REACH. BED IS IN LOW POSITION W/BEDRAILS UP X2. PT AGREES TO CALL PRN.
--- NOTE | 2020-01-28 05:05 | NUR ---
PT OFF MED SURG UNIT FOR CT SCAN ACCOMPANIED BY CNAX2
--- NOTE | 2020-01-28 05:36 | NUR ---
PT ARRIVED BACK TO MED SURG UNIT W/CAKE STRIPPER X2. CAKE STRIPPER REPORTED THAT PT HAD TO WAIT IN CT FOR TECH TO ARRIVE SCHEDULED AND SHE REFUSED TO PERFORM SCAN DUE TO PLACEMENT OF IV SITE. SHE SENT PT BACK TO MED SURG FLOOR FOR NEW IV SITE. PT IS REFUSING TO GO BACK TO CT W/NEW IV SITE AT THIS TIME. NO NEW SITE OBTAINED. PT REPORTS THAT HE ALREADY RECEIVED A CT SCAN IN THIS ORIGINAL IV. WILL INFORM DAY NURSE FOR POSSIBLE FOLLOW-UP PT ALLOWS.
[2020-01-28 07:40] VITALS: BP 124/85
--- NOTE | 2020-01-28 07:40 | NUR ---
ASSESSMENT IS COMPLETED: IV SITE IS FREE FROM REDNESS OR EDEMA. HR IS REG,PULSES ARE STRONG X4, ABD IS SOFT WITH ACTIVE BS. BREATH SOUNDS ARE CLEAR,BILATERALLY, TELE MONITOR IN PLACE. BANUELOS DRAINING YELLOW URINE.
--- NOTE | 2020-01-28 09:40 | NUR ---
IV SITE ATTEMPTED X2, ABLE TO BE OBTAINED BY HERNAN RN PT TOLERATED WELL.
--- NOTE | 2020-01-28 10:15 | NUR ---
PT TRANSPORTED VIA STRETCHER TO CT SCAN . THEN RETURNED AT 1045
--- NOTE | 2020-01-28 10:30 | NUR ---
IV SITE IN WAS TAKEN OUT TO LEAKING AND EMS SITE.
--- NOTE | 2020-01-28 12:45 | NUR ---
PT IS RELAXING IN BED DR CABRERA INT O VISIT WITH PT AND FAMILY. NO DISTRESS NOTED. IV SITE IS FREE FROM REDNESS OR EDEMA.
[2020-01-28 15:00] VITALS: BP 108/74
--- NOTE | 2020-01-28 16:45 | NUR ---
PT IS RELAXING IN BED , FAMILY IN TO VISIT WITH PT. NO DISTRESS NOTED. INFORMED OF THE PICC LINE PLACEMENT TOMORROW. FAMILY VERBALIZED UNDERSTANDING.
[2020-01-28 19:00] VITALS: BP 118/71
--- NOTE | 2020-01-28 20:16 | NUR ---
PT MEDICATED ORDERS PROVIDE AND ASSESSMENT COMPLETED AT THIS TIME. PT DENIES ANY NEEDS, TALKATIVE AND REPORTS FEELING OKAY. LUNG SOUNDS ARE CLEAR, ACTIVE BOWEL SOUNDS TO RIGHT QUADRANTS, HYPO TO UPPER AND LOWER LEFT QUADS. ENCOURAGED PT TO CALL NEEDS ARISE. CALL LIGHT IN HAND WITH LIGHTS AND TV ON.
--- NOTE | 2020-01-28 23:37 | NUR ---
IVF REPLENISHED AND ANTIBIOTIC THERAPY ADMINISTERED AT THIS TIME. PT IS SLEEPING, NO S/O DISTRESS NOTED.
[2020-01-29] VITALS: BP 111/69
[2020-01-29 04:00] VITALS: BP 100/54
[2020-01-29 04:32] LABS: HEMATOCRIT 27.6 % (39.0-50.0); HEMOGLOBIN 8.6 g/dl (14.0-18.0); IMMATURE GRANULOCYTES 0.8 % (0.0-5.0); MEAN CELL VOLUME 106.6 fL CALC (80.0-100.0); MEAN CORPUSCULAR HGB 33.2 pG CALC (26.0-32.0); MEAN CORPUSCULAR HGB CONC 31.2 g/dL CAL (32.0-36.0); NEUT# 6.41 thou/uL (1.82-7.42); RED BLOOD COUNT 2.59 mill/uL (4.70-6.10); RED CELL DISTRI WIDTH 15.8 % (11.5-15.5)
[2020-01-29 04:50] LABS: ANION GAP 9 (6-22 (CALC)); BUN 14 mg/dL (8-23); BUN/CREATININE RATIO 25 (12-20 (CALC)); CARBON DIOXIDE 21 mmol/l (22-30); CHLORIDE 111 mmol/l (95-108); CREATININE 0.6 mg/dL (0.7-1.3); GFR > 60 ML/MIN (>=60 (CALC)); GFR FOR AFR.AMER. > 60 ML/MIN (>=60 (CALC)); POTASSIUM 3.5 mmol/l (3.5-5.1); SODIUM 137 mmol/l (137-146)
[2020-01-29 04:56] LABS: PROTHROMBIN TIME 10.4 SECONDS (9.0-12.5)
--- NOTE | 2020-01-29 07:30 | NUR ---
REPORT RECEIVED FROM MALIA HENRIQUEZ. PT RESTING IN BED SEMI FOWLERS; ALERT AND ORIENTED. ASSISTED WITH REPOSITIONING INTO HIGH FOWLERS FOR BREAKFAST. DENIES PAIN. RESPIRATIONS EVEN AND UNLABORED ON ROOM AIR. BLOOD PRESSURE SLIGHTLY ELEVATED. LUNGS DIMINISHED. BS ACTIVE; DENIES ABDOMINAL PAIN. TRACE GENERALIZED EDEMA. BANUELOS CATHETER DRAINING CLEAR YELLOW URINE IN ADEQUATE AMOUNTS. PLAN OF CARE REVIEWED. PT ENCOURAGED TO VERBALIZE CONCERNS. STATES UNDERSTANDING. SAFETY MEASURES IN PLACE. CALL LIGHT WITHIN REACH.
[2020-01-29 07:43] VITALS: BP 167/80
--- NOTE | 2020-01-29 08:22 | NUR ---
TRANSPORTED TO RADIOLOGY [facility]IA STRETCHER [facility] FOR PICC LINE PLACEMENT. DR. GRAHAM AT BEDSIDE PRIOR TO TRANSPORT.
--- NOTE | 2020-01-29 09:20 | NUR ---
RETURNED TO FLOOR AND TRANSFERRED FROM STRETCHER TO BED WITH 3 PERSON ASSIST; INCONTINENET OF BOWEL UPON ARRIVAL; HYGIENE PROVIDED. PICC LINE IN PLACE TO [facility].
[2020-01-29 11:21] VITALS: BP 149/86
--- NOTE | 2020-01-29 15:10 | NUR ---
FIRST DOSE OF INVANZ INFUSING AT THIS TIME; PT EDUCATED ON MEDICATION AND S/S OF ALLERGIC REACTION. WILL CONTINUE TO MONITOR. PT AND ANXIOUS TO BE DISCHARGED. WILL CONTINUE TO MONITOR.
--- NOTE | 2020-01-29 15:43 | NUR ---
PERIPHERAL IV SITE DC'D. CATHETER INTACT AFTER REMOVAL. PT TOLERATED WELL. PT DRESSED AND TRANSFERRED FROM BED TO ELECTRIC CHAIR WITH JAYASHREE LIFT AND 2 PERSON ASSIST INCLUDING PHYSICAL THERAPY. ALFREDO CONTINUES TO INFUSE.
--- NOTE | 2020-01-29 15:44 | NUR ---
PT note Patient is screened for PT intervention . He is chairfast and is well - equipped with ciro and wheelchair at home. He has no needs at this tiome
--- NOTE | 2020-01-29 16:21 | NUR ---
Picc line flushed per protocol. Discharge instructions given. Patient verbalizes understanding of same. Discharged in stable condition via Wheelchair to Home with spouse. All belongings sent with pt.
--- NOTE | 2020-01-29 16:24 | NUR ---
PICC LINE DRESSING CHANGED PRIOR TO DISCHARGE DUE TO BLOODY DRAINAGE.
== END 2020-01-29 16:12 | disposition home or self-care (01) | DRG 389 ==
LOC: ED 09:37 → ED-I 12:28 → ED 12:39 → MS2 12:40
PROVIDERS: Emergency Medicine; Nurse Practitioner; ADMIT Internal Medicine; ATTEND Internal Medicine
PROC: 05H933Z Insertion of Infusion Device into Right Brachial Vein, Percutaneous Approach (ICD-10-PCS; principal; 2020-01-29)
DX: K56.609 Unspecified intestinal obstruction, unspecified as to partial versus complete obstruction (principal); N39.0 Urinary tract infection, site not specified; C78.02 Secondary malignant neoplasm of left lung; C78.01 Secondary malignant neoplasm of right lung; C78.7 Secondary malignant neoplasm of liver and intrahepatic bile duct; Z16.12 Extended spectrum beta lactamase (ESBL) resistance; I10 Essential (primary) hypertension; D53.9 Nutritional anemia, unspecified; J44.9 Chronic obstructive pulmonary disease, unspecified; C80.1 Malignant (primary) neoplasm, unspecified; E11.9 Type 2 diabetes mellitus without complications; K21.9 Gastro-esophageal reflux disease without esophagitis; R76.8 Other specified abnormal immunological findings in serum; B96.1 Klebsiella pneumoniae [K. pneumoniae] as the cause of diseases classified elsewhere; Z87.891 Personal history of nicotine dependence; Z96.0 Presence of urogenital implants; Z20.828 Contact with and (suspected) exposure to other viral communicable diseases
CPT/HCPCS: J1335; J1650; Q9967

== ENCOUNTER 2020-02-02 10:59 | Inpatient (IN) | payer OTHER, MEDICARE ==
[~2020-02-02] VITALS: Ht 182.9 cm; Wt 93.0 kg
[~2020-02-02 10:59] MED LIST changes: +ANTI-DIARRHE2 M1 PO; +ASPIRIN ADULT L81 M2 PO; +B-121000 MC1 PO; +CALCIUM 600 +600 MG PO; +CRANBERR3 PO; +CYANOCOBAL1000 MCG/M IM; +FE TABS325 MG PO; +HM MAGNESIUM400 MG PO; +LISINOPRIL2.5 MG PO; +LYRICA25 MG PO; +PAIN RELIEF EX500 M2 PO; +PRESERVISION AREDS 2 PO; +TRAMADOL HCL50 MG PO; +VITAMIN D1000 UNIT PO
--- NOTE | 2020-02-02 11:30 | NUR ---
PT TO RM 10 VIA EMS STRETCHER.
--- NOTE | 2020-02-02 12:30 | NUR ---
PT ARRIVES BY EMS. PT AOX4, WEAK AND NEEDS ASSISTANCE TO MOVE. AFIBRILE. STATES THAT PT HAS BEEN HAVING LOW ABD PAIN. LAST BM WAS WEDNESDAY. HE WAS ADMITTED LAST WEEK FOR OBSTRUCTION. BOWEL SOUNDS HYPOACTIVE. CRACKLES HEARD IN THE LEFT AND RIGHT LUNGS SCATTERED. STATES THAT OCCATIONALLY HE HAS THIN WATERY STOOLS. WILL CONTINUE TO MONITOR.
[2020-02-02 12:47] LABS: MEAN CELL VOLUME 106.4 fL CALC (80.0-100.0); MEAN CORPUSCULAR HGB 33.1 pG CALC (26.0-32.0); MEAN CORPUSCULAR HGB CONC 31.1 g/dL CAL (32.0-36.0); NEUT# 12.24 thou/uL (1.82-7.42); RED BLOOD COUNT 3.26 mill/uL (4.70-6.10); RED CELL DISTRI WIDTH 15.9 % (11.5-15.5)
[2020-02-02 13:10] LABS: ALKALINE PHOSPHATASE 108 u/l (38-126); BILIRUBIN, TOTAL 0.4 mg/dL (0.0-1.4); BUN 17 mg/dL (8-23); BUN/CREATININE RATIO 22 (12-20 (CALC)); CARBON DIOXIDE 24 mmol/l (22-30); CHLORIDE 100 mmol/l (95-108); CREATININE 0.8 mg/dL (0.7-1.3); GFR > 60 ML/MIN (>=60 (CALC)); GFR FOR AFR.AMER. > 60 ML/MIN (>=60 (CALC)); LIPASE 45 u/l (23-300); SGOT/AST 40 u/l (19-48); SODIUM 134 mmol/l (137-146)
[2020-02-02 13:13] LABS: ALBUMIN 3.8 g/dL (3.2-5.0); ANION GAP 15 (6-22 (CALC)); POTASSIUM 5.2 mmol/l (3.5-5.1); TOTAL PROTEIN 6.9 g/dL (6.3-8.2)
[2020-02-02 13:14] LABS: HEMATOCRIT 34.7 % (39.0-50.0); HEMOGLOBIN 10.8 g/dl (14.0-18.0)
[2020-02-02 13:26] LABS: URINE BILIRUBIN - DIPSTICK NEGATIVE (NEGATIVE); URINE BLOOD DIPSTICK NEGATIVE (NEGATIVE); URINE COLOR YELLOW; URINE GLUCOSE - DIPSTICK NEGATIVE (NEGATIVE); URINE KETONE TRACE mg/dL (NEGATIVE); URINE LEUK ESTERASE NEGATIVE (NEGATIVE); URINE NITRITE - DIPSTICK NEGATIVE (Negative); URINE PROTEIN - DIPSTICK TRACE mg/dL (NEG-TRACE); URINE SPECIFIC GRAVITY >=1.030; URINE UROBILINOGEN - DIPSTICK 0.2 E.U./dL (0.2)
--- NOTE | 2020-02-02 13:30 | NUR ---
PT RESTING ON STRETCHER BEING DISCONNECTED FROM MONITORING EQUIPMENT FOR CT
--- NOTE | 2020-02-02 14:30 | NUR ---
ANIBIOTICS AND FLUIDS FLOWING INTO A PATENT IV. AND PT UPDATED ON PLAN OF CARE
--- NOTE | 2020-02-02 15:30 | NUR ---
NG TUBE INSERTED. PLACEMENT CONFIRMED WITH AUDIBLE SOUND IN STOMACH AND ASPIRATED RED YELLOW GI CONTENTS. PT DEMONSTRATES FEELING RELIEF. 1000 ML OF GI CONTENTS COLLECTED AND SUCTION CONTAINER SWITCHED OUT.
--- NOTE | 2020-02-02 15:30 | NUR ---
MD ORDERED NG TUBE, NOTIFIED. PREPARED PT.
--- NOTE | 2020-02-02 16:30 | NUR ---
PT RESTING ON STRETCHER AND REPOSITIONED. CALL LIGHT PLACED WITHIN REACH. AT BEDSIDE.
--- NOTE | 2020-02-02 17:30 | NUR ---
NG TUBE EXCREETED 1500 ML OF GI FLUID. PT STATES HAVING MAJOR RELIEF AND ASKED FOR WARM BLANKETS. CALL LIGHT WITHIN REACH AND STATES SHE IS GOING HOME FOR THE DAY. HOPITAL POLICIES COMMUNICATED WITH AND PT PLAN OF CARE
--- NOTE | 2020-02-02 18:30 | NUR ---
PT ASKED TO BE REPOSITIONED. CALL LIGHT WITHIN REACH. LIGHTS DIMMED. O2 CONTINUES TO TRIKLE DOWN A RESULT OF PT SLEEPING WITH MOUTH OPEN. HE IS REMINDED TO CLOSE MOUTH
--- NOTE | 2020-02-02 19:15 | NUR ---
GAVE REPORT TO [place]
--- NOTE | 2020-02-02 19:24 | NUR ---
GAVE REPORT TO NOHEMI
--- NOTE | 2020-02-02 19:40 | NUR ---
PT TRANSPORTED TO MED SURG STABLE AND IN NO DISTRESS BY NURSE AND TECH VIA STRETCHER. CARE ASSUMED TO NOHEMI
[2020-02-02 20:10] VITALS: BP 152/81
--- NOTE | 2020-02-02 21:00 | NUR ---
RECEIVED PATIENT TO FLOOR AT 2004 VIA STRETCHER FROM THE ED. PATIENT IS ALERT AND ORIENT X3. ABLE TO MAKE NEEDS KNOWN. RESPIRATIONS EASY ON 3L NC. NG TUBE IN PLACE WITH INTERMITENT SUCTIN DUE TO SMALL BOWEL OBSTRUCTION. PATIENTS REPORTS FEELING MUCH BETTERS AFTER SUBSTANCE EVACUATED FROM THE STOMACH. C/O ARTHRITIC PAIN THROUGHT BODY PAIN 10/10. COCCYX VERY RED. PATIENT TURNED SIDE TO SIDE FOR COMFORT. BED IN LOW POSITION. CALL LIGHT WITHIN REACH.
[2020-02-02 23:30] VITALS: BP 144/75
[2020-02-03] VITALS (39 sets, daily range): BP systolic 79–167; BP diastolic 54–92
--- NOTE | 2020-02-03 | NUR ---
PATIENT RESTING WITH EYES CLOSED RESPIRATION EVEN. NO ACUTE DISTRESS NOTED. BED IN LOW POSITION. CALL LIGHT WITHIN REACH.
--- NOTE | 2020-02-03 04:00 | NUR ---
PATIENT RESTING QUIETLY IN BED. EYES CLOSED. RESPIRATIONS EASY ON ROOM AIR. NO ACUTE DISTRESS NOTED. BED IN LOW POSITION. CALL LIGHT WITHIN REACH.
--- NOTE | 2020-02-03 07:39 | NUR ---
PT note Patient is screened for PT intervention and no needs are identified at this time
--- NOTE | 2020-02-03 08:49 | NUR ---
NGT OUT, ATTEMPTED TO REINSERT, PT STATED THAT HE WAS UNABLE TO BREATHE WITH TUBE, AND PULLED NGT OUT. EXPLAINED TO PATIENT THAT THE TUBE WOULD HELP PREVENT NAUSEA AND VOMITING, PATIENT VERB UNDERSTANDING, BUT STILL REFUSE THE TUBE.
--- NOTE | 2020-02-03 12:46 | NUR ---
PATIENT TO SURGERY VIA STRETCHER, PATIENT VERB UNDERSTANDING THAT HE WAS GOING TO SURGERY. ALSO INFORMED PATIENT THAT WILL SEE HIM BEFORE SURGERY.
--- NOTE | 2020-02-03 14:39 | NUR ---
1300 off the floor for surgery
--- NOTE | 2020-02-03 15:26 | NUR ---
male pt received from OR via stretcher accompanied by OR staff x3; pt transferred to bed; bedside report received at this time; OR staff reports pt receiving 1400 merrem in OR; assessment completed at this time; pt intubated/ nonverbal; no n/v noted; pupils reactive; resp even and unlabored; lungs clear/ slightly diminished bases; skin color pale; vent intact and maintained with settings of AC mode, rate 18, TV 500, peep 5.0, 100% Fio2; 8.0 Fr ETT secured at the 23cm bottom lip line; o2 sat 99-100%; RT remains at bedside; hr reg; weak pedal pulses; 1+ pedal edema noted; st on monitor; abd distended with bs absent; ng tube intact to right nare; verified via air insertion/ ascult; connected to LCS with brownish green gastric content noted; abd binder intact; hawthorne to gravity draining clear yellow urine; cath strap intact; single lumen picc intact to brian with ivf infusing without complication; no redness or edema noted at site; midline incision noted with dressing cdi; lap incisions X3 noted to left abd with dressing cdi; pt repositined to right side; scds intact; hob elevated; restraints to be applied to prevent self extubation; will continue to monitor closely
--- NOTE | 2020-02-03 16:08 | NUR ---
Desirae at [facility] called per this verse writer; verse writer request for propofol to be verified
--- NOTE | 2020-02-03 16:20 | NUR ---
staff writer spoke with Taylor at [facility] in regards to verifying propofol STAT
--- NOTE | 2020-02-03 16:23 | NUR ---
cardinal Yissel Bourne called this race and sports book writer; requesting clarification on toradol and demerol d/t listed allergies
--- NOTE | 2020-02-03 16:25 | NUR ---
PT RESTING IN SEMI FOWLERS POSITION WITH VISITOR AT BEDSIDE. RESPIRATIONS ARE EVEN AND UNLABORED WITH NO SIGNS OF DISTRESS NOTED. PT REMAINS AO X3. SR ON SYSTEMS PROGRAM MANAGER. PT DENIES OF ANY PAIN OR DISCOMFORTS AT THIS TIME. ALL SAFETY PRECAUTIONS ARE IN PLACE WITH CALL LIGHT IN REACH. WILL CONTINUE TO MONITOR
--- NOTE | 2020-02-03 17:05 | NUR ---
Dr Lyn called per parts data writer for clarification on torasol and demerol; order received; MD also informed of hypotension; orders received for fluid bolus
--- NOTE | 2020-02-03 17:50 | NUR ---
spouse present outside of pt door
--- NOTE | 2020-02-03 18:11 | NUR ---
pt noted attempting to sit up in bed; service writer advisor at bedside; sedation titrated for -3 rass goal; iv intact and patent; no redness or edema noted at site; propofol at 30 mcg/kg/min; bp 167/91; st on monitor; hawthorne to gravity; emptied for 80cc;vent intact and maintained;
--- NOTE | 2020-02-03 20:21 | NUR ---
CALLED AND SPOKE TO DR GRAHAM TO NOTIFY OF PATIENT'S BLOOD PRESSURE NOT READING, NEW ORDERS FOR LEVOPHED, ALSO ORDERS FOR PLACEMENT OF PICC. MAP TO BE GREATER THAN 65.
--- NOTE | 2020-02-03 20:58 | NUR ---
SPOKE TO BAR AT ER TO NOTIFY IF DR GORMAN IS ABLE TO COME TO ICU FOR ORDERS FOR PLACEMENT FOR PICC, DR GORMAN NOT AVAILABLE AT THIS MOMENT, IN WITH CRITICAL PEDIATRIC PATIENT.
--- NOTE | 2020-02-03 22:22 | NUR ---
PATIENT HAD 6 BEATS OF V-TACH, NOTIFIED DR GRAHAM, NEW ORDERS RECEIVED TO CHECK FOR LAB WORK.
--- NOTE | 2020-02-03 22:42 | NUR ---
CALLED LAB FOR ORDERS FOR POTASSIUM AND MAGNESIUM.
[2020-02-03 23:11] LABS: ANION GAP 14 (6-22 (CALC)); BUN 17 mg/dL (8-23); BUN/CREATININE RATIO 24 (12-20 (CALC)); CARBON DIOXIDE 20 mmol/l (22-30); CHLORIDE 106 mmol/l (95-108); CREATININE 0.7 mg/dL (0.7-1.3); GFR > 60 ML/MIN (>=60 (CALC)); GFR FOR AFR.AMER. > 60 ML/MIN (>=60 (CALC)); POTASSIUM 4.5 mmol/l (3.5-5.1); SODIUM 135 mmol/l (137-146)
--- NOTE | 2020-02-03 23:15 | NUR ---
CALLED AND NOTIFIED DR GRAHAM OF CURRENT PATIENT STATUS WITH BLOOD PRESSURE, NEW ORDERS RECEIVED. SENT STAT TO [facility].
[2020-02-03 23:16] LABS: MAGNESIUM 2.9 mg/dL (1.6-2.3)
--- NOTE | 2020-02-03 23:28 | NUR ---
NOTIFIED DR GRAHAM OF MAGNESIUM AND POTASSIUM RESULTS.
[2020-02-04] VITALS (129 sets, daily range): BP systolic 51–153; BP diastolic 44–90
--- NOTE | 2020-02-04 00:37 | NUR ---
SPOKE TO DR GRAHAM TO NOTIFY OF PATIENT STATUS, NEW ORDERS RECEIVED. ALSO ORDERED TO CALL DR CABRERA.
--- NOTE | 2020-02-04 00:48 | NUR ---
CALLED AND NOTIFIED DR CABRERA, KERA BISHOP RECEIVED. DR RIVERA IS ON HIS WAY TO PLACE CENTRAL LINE WELL.
--- NOTE | 2020-02-04 01:04 | NUR ---
DR CABRERA CALLED TO NOTIFY HE WILL BE PLACING AN ARTERIAL LINE.
[2020-02-04 01:29] LABS: HEMOGLOBIN 12.4 g/dl (14.0-18.0); IMMATURE GRANULOCYTES 0.6 % (0.0-5.0); MEAN CELL VOLUME 112.6 fL CALC (80.0-100.0); MEAN CORPUSCULAR HGB 33.2 pG CALC (26.0-32.0); MEAN CORPUSCULAR HGB CONC 29.5 g/dL CAL (32.0-36.0); NEUT# 4.81 thou/uL (1.82-7.42); RED BLOOD COUNT 3.73 mill/uL (4.70-6.10)
--- NOTE | 2020-02-04 02:00 | NUR ---
AROUND 0200 DR CABRERA ARRIVED AT BEDSIDE FOR TRIPLE LUMEN PICC PLACEMENT. HE ALSO ATTEMPTED TO PLACE AN ARTERIAL LINE, UNSUCCESSFUL AT THIS TIME.
--- NOTE | 2020-02-04 02:24 | NUR ---
TRIPLE LUMEN CENTRAL LINE PLACED BY DR CABRERA.
--- NOTE | 2020-02-04 03:21 | NUR ---
VERBAL ORDERS FROM DR CABRERA TO BOLUS UP TO 8 L OF NORMAL SALINE AND KEEP MONITORING BLOOD PRESSURE, UPDATE HIM ON BP WHEN HE HAS HAD THE [address] CABRERA ALSO SPOKE TO PATIENT'S , SHE REPORTS PT IS A DNR AND ONLY WOULD LIKE MEDICATIONS AND IV FLUIDS.
--- NOTE | 2020-02-04 03:33 | NUR ---
patient's has called, pt is coming to see pt.
--- NOTE | 2020-02-04 04:00 | NUR ---
PATIENT'S AT BEDSIDE WITH PPE ON
--- NOTE | 2020-02-04 05:05 | NUR ---
BLOOD DRAWN FOR LABS THIS AM FROM TRIPLE LUMEN PICC, AT BEDSIDE, COMFORTS PATIENT.
[2020-02-04 05:41] LABS: MEAN CELL VOLUME 111.5 fL CALC (80.0-100.0); MEAN CORPUSCULAR HGB 33.3 pG CALC (26.0-32.0); MEAN CORPUSCULAR HGB CONC 29.9 g/dL CAL (32.0-36.0); NEUT# 3.82 thou/uL (1.82-7.42); RED BLOOD COUNT 2.61 mill/uL (4.70-6.10); RED CELL DISTRI WIDTH 15.8 % (11.5-15.5)
--- NOTE | 2020-02-04 06:01 | NUR ---
AT BEDSIDE. BP AT 0550 90/63. BANUELOS BAG EMPTIED. CALLED AND SPOKE TO DR CABRERA TO NOTIFY HE FINISHED HIS LAST 8TH BOLUS, NOTIFIED LAST BP. NOTIFIED I PLACED HIM BACK ON D5W 1/2 NS AT 125. NOTIFIED BP FLUCUATES FROM 70'S-90'S SYSTOLIC. NEW ORDERS RECEIVED TO GIVE 2 MORE BOLUSES IF BP DROPS. WILL CONTINUE TO MONITOR.
[2020-02-04 06:02] LABS: HEMATOCRIT 29.1 % (39.0-50.0); HEMOGLOBIN 8.7 g/dl (14.0-18.0)
[2020-02-04 06:13] LABS: ANION GAP 5 (6-22 (CALC)); BUN 16 mg/dL (8-23); BUN/CREATININE RATIO 24 (12-20 (CALC)); CARBON DIOXIDE 17 mmol/l (22-30); CHLORIDE 117 mmol/l (95-108); CREATININE 0.7 mg/dL (0.7-1.3); GFR > 60 ML/MIN (>=60 (CALC)); GFR FOR AFR.AMER. > 60 ML/MIN (>=60 (CALC)); POTASSIUM 3.6 mmol/l (3.5-5.1); SGOT/AST 16 u/l (19-48); SODIUM 135 mmol/l (137-146)
--- NOTE | 2020-02-04 06:29 | NUR ---
CALCIUM 5.9 REPORTED BY BALDOMERO SABA.
[2020-02-04 06:32] LABS: ALBUMIN 1.4 g/dL (3.2-5.0); ALKALINE PHOSPHATASE 43 u/l (38-126); BILIRUBIN, TOTAL 0.1 mg/dL (0.0-1.4)
--- NOTE | 2020-02-04 07:20 | NUR ---
ASSESSMENT COMPLETED PER Pierre ENAMORADO RN; RESTRAINTS NOTE DISCONTINUED; RESOURCE MANAGER FORESTER AT BEDSIDE
--- NOTE | 2020-02-04 07:20 | NUR ---
WALKED INTO PT ROOM, PT SEDATED WITH DIPROVAN, LAYING ON BACK WITH HOB AT 30 DEGREES. IS AT BEDSIDE AND HAS BEEN THERE THRU OUT THE NIGHT, PER CHEESEMAKER NURSE PTS BLOOD PRESSURE HAS REMAINED LOW AND HAS BEEN ON LEVOFED AND D/C'D PER DOCTOR , AND NOW OF DOPAMINE PER DR. MILLS, FLUIDS INFUSING INTO LEFT SUBCLAVIAN AND RIGHT AC. PITTING EDEMA +2 TO ROMAN LEGS AND HANDS. PALE SKIN AND COOL TO TOUCH. WARM BLANKETS GIVEN, LUNGS UPPER CLEAR, AND LOWER DIMINISHED. PT IS NOT AWAKENED WITH VERBAL STIMULI. STATES SHE HASNT SEEN HIM AWAKE OR MOVING SINCE INTUBATED. DRESSINGS DRY AND INTACT ON ABDOMEN, AND URINE DRAINING FROM BANUELOS.
[2020-02-04 07:22] LABS: C-REACTIVE PROTEIN 12.8 mg/dL (0-0.9)
--- NOTE | 2020-02-04 10:45 | NUR ---
DR. LEON AT BEDSIDE, ATTEMPTING TO PLACE ARTERIAL LINE TO RIGHT ARM.
--- NOTE | 2020-02-04 10:55 | NUR ---
2ND ATTEMPT AT ART LINE UNSUCCESSFUL PER DR. LEON
--- NOTE | 2020-02-04 11:07 | NUR ---
Dr Bowden called Dr Lyn; per Dr Bowden, levophed gtt to be initated in addition to dopamine gtt; will continue to monitor
--- NOTE | 2020-02-04 11:25 | NUR ---
PTS REMAINS AT BEDSIDE, DOPAMINE RUNNING AT 15 MCQ FOR BLOOD PRESSURE OF 100/61, DIPROVAN INFUSING. PT WILL MOVE TO PAINFUL STIMULI. STATES SHE THINKS PT IS JUST WAITING TO PASS AWAY AFTER SONS COME DOWN FROM [place]
--- NOTE | 2020-02-04 11:39 | NUR ---
PTS BLOODPRESSURE REMAINS LOW AT 104/72, IV FLUIDS/DOPAMINE/DIPROVAN INFUSING. REMAINS AT BEDSIDE. STATES SHE JUST DOES NOT WANT HER TO BE IN ANY PAIN, AND SHE HAS TO GO ALONG WITH HIS WISHES FOR DNR
--- NOTE | 2020-02-04 12:41 | NUR ---
Dr Bowden present at bedside
--- NOTE | 2020-02-04 13:12 | NUR ---
Dr Lyn present at bedside to assess pt and discuss plan of care; spouse remains at bedside in PPE
--- NOTE | 2020-02-04 13:25 | NUR ---
pulse ox probe applied to left ear; o2 sat 98-99% on 100% FiO2 vent
--- NOTE | 2020-02-04 13:34 | NUR ---
BLOOD TRANSFUSING, WITH NO REACTION. PTS VITAOL SIGNS REMAIN STABLE. REMAINS AT BEDSIDE.
--- NOTE | 2020-02-04 15:08 | NUR ---
IV FLUIDS INFUSING, REMAINS AT SIDE. VITAL SIGNS STABLE.
--- NOTE | 2020-02-04 17:00 | NUR ---
Dr Bowden called this content writer; update provided; content writer informed MD of current bp, 2nd unit of prbcs infusing, low urine output of 450cc; orders received and on chart
--- NOTE | 2020-02-04 17:41 | NUR ---
RT at bedside and unable to obtain ABG: notified
--- NOTE | 2020-02-04 17:44 | NUR ---
RT UNABLE TO OBTAIN BLOOD GAS THAT DR. MILLS ORDERED
--- NOTE | 2020-02-04 19:30 | NUR ---
PATIENT GRIMACES WHEN MOUTH CARE PROVIDED. HE BITES DOWN ON TOOTHETTE. PATIENT IS ON ASSIST CONTROL ON VENT, FIO2 100%, RATE 24, TIDAL VOLUME 500, PEEP 5, 23 CM AT THE LIP. R-NARE NG TUBE AT [facility], GREEN GASTRIC SECRETIONS NOTED. LEFT SUBCLAVIAN TRIPLE LUMEN INTACT, ALL IV INFUSION DRIPS AND IV FLUIDS INFUSING PROPERLY. IV X2 INTACT, FLUSH PROPERLY. SHANA PICC INTACT, FLUSHES PROPERLY. SCD'S TAKEN OFF TO ASSESS AND PLACED BACK ON. LARGE SOCKS APPLIED, HEELS ELEVATED. REPOSITIONED. NURSE ASSESSMENT PERFORMED. REMAINS AT BEDSIDE, REPORTS SHE IS WAITING FOR HER SONS TO ARRIVE AND DECIDE ON EXTUBATIONG. BANUELOS CATHETER INTACT, DRAINS TO GRAVITY, URINE YELLOW/CLEAR. ST IN LOW 100'S. BP 130'S-140'S SYSTOLIC. AFEBRILE. BLOOD TRANSFUSING AT THE MOMENT AT 125 ML/HR.
--- NOTE | 2020-02-04 19:39 | NUR ---
CALLED AND SPOKE TO DR GRAHAM TO UPDATE ON PATIENT STATUS AND THAT REPORTED SHE IS WAITING ON HER SON'S AND GRANCHILDREN TO ARRIVE TO SEE PATIENT AND MOST LIKELY EXTUBATE. WILL UPDATE DR GRAHAM.
--- NOTE | 2020-02-04 19:45 | NUR ---
CALLED AND SPOKE TO DR CABRERA WELL TO UPDATE.
--- NOTE | 2020-02-04 19:55 | NUR ---
SECOND BLOOD TRANSFUSION FINISHED. NO TRANSFUSION REACTION OBSERVED. AT BEDSIDE.
--- NOTE | 2020-02-04 22:38 | NUR ---
ANTIBIOTIC INFUSING NOW. REMAINS AT BEDSIDE. PATIENT'S BP 140'S SYSTOLIC. ST 106 BPM. 100% O2 SAT ON THE VENT. MOUTH CARE PROVIDED, PATIENT GRIMACES AND BITES DOWN ON TOOTHETTE. REPOSITIONED.
--- NOTE | 2020-02-04 23:20 | NUR ---
DR GRAHAM CALLED HERE FOR UPDATES ON PATIENT'S, ORDERED FOR AM LABS.
--- NOTE | 2020-02-04 23:35 | NUR ---
PATIENT'S 2 SONS HAVE ARRIVED, WAIVERS SIGNED AND DRESSED IN FULL PPE. ARE AT BEDSIDE NOW.
--- NOTE | 2020-02-04 23:56 | NUR ---
FIRST LINE SUPERVISOR LESTER AND MYSELF WENT IN ROOM AND TALKED ABOUT POC AT THIS TIME WELL THEY COULD COME BACK IN THE MORNING TO TALK TO DOCTOR, SONS AGREED. THEY HAVE LEFT FOR THE NIGHT, LET THEM KNOW WE WOULD CALL THEM IF ANY PATIENT STATUS CHANGES. IS AT BEDSIDE.
[2020-02-05] VITALS (57 sets, daily range): BP systolic 81–152; BP diastolic 53–86
--- NOTE | 2020-02-05 01:12 | NUR ---
PATIENT'S GRANDSON HAS ARRIVED, HE HAS SIGNED WAIVER AND HAS FULL PPE ON, IS AT BEDSIDE.
--- NOTE | 2020-02-05 02:33 | NUR ---
PATIENT REPOSITIONED, MOUTH CARE PROVIDED. AT BEDSIDE, WARM BLANKET PROVIDED, VENT SETTINGS UNCHANGED. BP 126/73 MMHG. O2 SAT 98%. PATIENT BITED DOWN ON TOOTHETTE WHEN PROVIDING MOUTH CARE.
--- NOTE | 2020-02-05 05:20 | NUR ---
PATIENT REPSOITIONED, MOUTH CARE PROVIDED. AT BEDSIDE. VENT SETTINGS UNCHANGED. 225 ML OF URINE OUTPUT DOCUMENTED. BLOOD DRAWN FROM LEFT SUBCLAVIAN FOR AM LABS. HEELS ELEVATED. SCD'S INTACT.
[2020-02-05 05:39] LABS: MEAN CORPUSCULAR HGB 32.6 pG CALC (26.0-32.0); MEAN CORPUSCULAR HGB CONC 32.3 g/dL CAL (32.0-36.0); NEUT# 9.58 thou/uL (1.82-7.42); RED BLOOD COUNT 4.33 mill/uL (4.70-6.10); RED CELL DISTRI WIDTH 19.9 % (11.5-15.5)
[2020-02-05 05:42] LABS: ANION GAP 10 (6-22 (CALC)); BUN 16 mg/dL (8-23); BUN/CREATININE RATIO 24 (12-20 (CALC)); CARBON DIOXIDE 18 mmol/l (22-30); CHLORIDE 110 mmol/l (95-108); CREATININE 0.7 mg/dL (0.7-1.3); GFR > 60 ML/MIN (>=60 (CALC)); GFR FOR AFR.AMER. > 60 ML/MIN (>=60 (CALC)); POTASSIUM 3.8 mmol/l (3.5-5.1); SGOT/AST 23 u/l (19-48); SODIUM 134 mmol/l (137-146)
[2020-02-05 05:46] LABS: HEMATOCRIT 43.7 % (39.0-50.0); HEMOGLOBIN 14.1 g/dl (14.0-18.0); MEAN CELL VOLUME 100.9 fL CALC (80.0-100.0)
[2020-02-05 05:47] LABS: IMMATURE GRANULOCYTES 6.9 % (0.0-5.0)
[2020-02-05 06:04] LABS: ALBUMIN 1.7 g/dL (3.2-5.0); ALKALINE PHOSPHATASE 69 u/l (38-126); BILIRUBIN, TOTAL 0.3 mg/dL (0.0-1.4); TOTAL PROTEIN 3.7 g/dL (6.3-8.2)
--- NOTE | 2020-02-05 06:34 | NUR ---
CALLED AND SPOKE TO DR GLOVER TO NOTIFY OF BP NOT READING AGAIN. WILL INCREASE LEVOPHED.
--- NOTE | 2020-02-05 06:45 | NUR ---
REPORT RECEIVED FROM BALDOMERO FINLEY. CARE ASSUMED.
--- NOTE | 2020-02-05 07:15 | NUR ---
PT RESTING IN BED INTUBATED AND SEDATED AT THIS TIME. EYES ARE OPEN BUT PT DOES NOT RESPOND TO ANY STIMULI. SHIFT ASSESSMENT COMPLETED AT THIS TIME. IV PATENT X4. PT NOTED TO HAVE GENERALIZED 4+ EDEMA. LUNGS ARE COARSE THROUGHOUT. MID LINE INCISION NOTED. ABD BINDER IN PLACE. AT BEDSIDE IN PPE. CALL LIGHT IN REACH. WILL CONTINUE TO MONITOR
--- NOTE | 2020-02-05 07:30 | NUR ---
PHONED DIETARY TO PRIVDE A BREAKFAST TRAY AND TO SET UP BEREAVEMENT CART OUTSIDE OF ROOM.
--- NOTE | 2020-02-05 08:20 | NUR ---
DR GRAHAM AND RT AT BEDSIDE AT THIS TIME. RT ATTEMPTING TO OBTAIN ABG
--- NOTE | 2020-02-05 08:40 | NUR ---
SON AT BEDSIDE AT THIS TIME.
--- NOTE | 2020-02-05 08:42 | NUR ---
PT MEDICATED WITH IV LASIX PER MD ORDER FOR GENERALIZED EDEMA. FLUIDS WILL MAINTAIN AT 125CC/HR AT THIS TIME FOR BP MAINTENANCE
--- NOTE | 2020-02-05 08:50 | NUR ---
DR CABRERA ON UNIT DISCUSSING PLAN OF CARE WITH DR GRAHAM.
--- NOTE | 2020-02-05 08:51 | NUR ---
DR GRAHAM NOTIFIED OF ABG RESULTS.
--- NOTE | 2020-02-05 09:00 | NUR ---
DR GRAHAM AT BEDSIDE DISCUSSING PLAN OF CARE WITH SON
--- NOTE | 2020-02-05 09:15 | NUR ---
ID BAND REMOVED DUE TO IT BEING TIGHT ON SKIN. NEW ID BAND APPLIED WITH METAL HANDLER WITH VERIFYING NAME AND . BLOOD BAND HAD TO BE REMOVED WELL DUE TO TIGHTNESS. NO NEW BAND APPLIED AT THIS TIME.
--- NOTE | 2020-02-05 09:37 | NUR ---
ANESTHESIA AT BEDSIDE TO ASSESS FOR ARTERIAL LINE.
--- NOTE | 2020-02-05 09:45 | NUR ---
ANESTHESIA UNABLE TO PLACE A LINE. MULTIPLE FAMILY MEMBERS AT BEDSIDE IN PPE.
--- NOTE | 2020-02-05 10:06 | NUR ---
PT RESTING IN BED REMAINS INTUBATED AND SEDATED. FAMILY AT BEDSIDE. DR GRAHAM NOTIFIED OF UNABLE TO OBTAIN BP. NEW ORDERS RECEIVED.
--- NOTE | 2020-02-05 11:00 | NUR ---
AWAKENING TRIAL COMPLETED FOLLOWS. 1050- PROPOFOL DECREASED TO 10MCG/KG/MIN 1105- PROPOFOL DECREASED TO 0. NOTED BP IMPROVEMENT. DR GRAHAM NOTIFIED. NEW ORDERS RECEIVED.
--- NOTE | 2020-02-05 11:07 | NUR ---
PT RESTING IN BED INTUBATED AT THIS TIME. NO RESPONSE NOTED AT THIS TIME. SPOUSE UPDATED ON PLAN OF CARE CHANGE OF MEDICAITONS AND AGREEABLE WITH POC.
--- NOTE | 2020-02-05 12:00 | NUR ---
PT RESTING IN BED INTUBATED AND SEDATED AT THIS TIME. MEDICATIONS TITRATED PER TITRATION CHARTING.
--- NOTE | 2020-02-05 12:36 | NUR ---
DR GRAHAM PHONED FOR UPDATE. UPDATE PROVIDED.
--- NOTE | 2020-02-05 13:55 | NUR ---
PT NOTED TO HAVE SHORT RUNS OF VTACH 6-10 BEATS. WILL THEN GO BACK TO A SINUS TACH DR GRAHAM NOTIFIED.
--- NOTE | 2020-02-05 14:36 | NUR ---
THIS WAREHOUSE MAN AT BEDSIDE TO EXPLAIN THAT PATIENT HAD SOME EPISODES OF VTACH. SPOUSE VERBALIZED THAT SHE SAW IT ON THE MONITOR. SPOUSE QUESTIONED THE VENT ALARMING. THIS WAREHOUSE MAN EXPLAINED THAT IT WAS ALARMING DUE TO DECREASE VOLUME PT IS TAKING IN. VERBALIZED UNDERSTANDING. QUESTIONED IF PT WAS ABLE TO WAKE UP WHILE OFF OF PROPOFOL AND THAT SHE DID NOT SEE HIM RESPOND IN THE TIME OFF. WILL CONTINUE TO MONITOR.
--- NOTE | 2020-02-05 14:59 | NUR ---
MULTIPLE FAMILY MEMBERS AT BEDSIDE WITH PPE ON.
--- NOTE | 2020-02-05 15:17 | NUR ---
FAMILY AT BEDSIDE. STATES THAT PT IS NOT RESPONDING TO ANYTHING. ALSO STATED THAT SHE THINKS HIS PUPILS ARE PINPOINT. SPOUSE, 2 SONS, AND GRANDSON ARE IN AGREEANCE THAT AT THIS TIME THEY WOULD LIKE ALL MEDICATIONS STOPPED AND WOULD LIKE THE PT EXTUBATED. DR GRAHAM NOTIFIED. VERBAL ORDERS RECEIVED IN AGREEANCE WITH FAMILY WISHES.
--- NOTE | 2020-02-05 15:53 | NUR ---
ALL MEDICATIONS STOPPED AT THIS TIME WITH THE EXCEPTION OF VERSED. ASKED TO LEAVE VERSED UNTIL TIME TO EXTUBATE.
--- NOTE | 2020-02-05 16:10 | NUR ---
pt extubated. at bedside for extubation.
--- NOTE | 2020-02-05 16:30 | NUR ---
SPOUSE IN BED WITH PATIENT. PT NOTED TO HAVE AGONAL BREATHING. HR IN 70S AT THIS TIME. SPOUSE VERBALIZED UNDERSTANDING
--- NOTE | 2020-02-05 16:43 | NUR ---
MONITOR ASYSTOLE AT THIS TIME. THIS NURSE LISTENED NO HEARTBEAT NOTED. NO RESPIRATIONS NOTED. SECOND NURSE KIRTI VILLA RN AT BEDSIDE AND VERBALIZED THE SAME FINDINGS. SPOUSE AT BEDSIDE.
--- NOTE | 2020-02-05 16:50 | NUR ---
DR GRAHAM NOTIFIED OF .
--- NOTE | 2020-02-05 16:52 | NUR ---
[facility] CALLED AT THIS TIME. PT IS NOT MEDICALLY SUITABLE. REFERENCE NUMBER [id number].
--- NOTE | 2020-02-05 17:04 | NUR ---
SPOUSE AND SONS AT BEDSIDE AT THIS TIME.
--- NOTE | 2020-02-05 17:21 | NUR ---
DR CABRERA NOTIFIED OF . JUDE PARIS NOTIFIED.
--- NOTE | 2020-02-05 17:25 | NUR ---
ALL IV LINES DC'D. CATH TIPS INTACT FOR EACH. BANUELOS DC'D
--- NOTE | 2020-02-05 17:36 | NUR ---
[facility] CALLED BACK AND DECLINED.
--- NOTE | 2020-02-05 17:48 | NUR ---
1610 time of extubation. in room at bedside. jovon Valiente in room
--- NOTE | 2020-02-05 19:15 | NUR ---
chio from [facility] home here. body released. dentures sent.
== END 2020-02-05 16:43 | disposition expired | DRG 329 ==
LOC: ED 10:59 → ED-I 15:18 → ED 16:01 → MS2 16:02 → ICU 16:02
PROVIDERS: Family Medicine; Nurse Practitioner Family; ADMIT Internal Medicine; ATTEND Internal Medicine
PROC: 0DTF0ZZ Resection of Right Large Intestine, Open Approach (ICD-10-PCS; principal; 2020-02-03)
PROC: 0DJD4ZZ Inspection of Lower Intestinal Tract, Percutaneous Endoscopic Approach (ICD-10-PCS; 2020-02-03)
PROC: 5A1945Z Respiratory Ventilation, 24-96 Consecutive Hours (ICD-10-PCS; 2020-02-03)
PROC: 0BH17EZ Insertion of Endotracheal Airway into Trachea, Via Natural or Artificial Opening (ICD-10-PCS; 2020-02-03)
PROC: 05H633Z Insertion of Infusion Device into Left Subclavian Vein, Percutaneous Approach (ICD-10-PCS; 2020-02-04)
PROC: 30243N1 Transfusion of Nonautologous Red Blood Cells into Central Vein, Percutaneous Approach (ICD-10-PCS; 2020-02-04)
PROC: 30243N1 Transfusion of Nonautologous Red Blood Cells into Central Vein, Percutaneous Approach (ICD-10-PCS; 2020-02-04)
DX: C18.0 Malignant neoplasm of cecum (principal); J80 Acute respiratory distress syndrome; C78.6 Secondary malignant neoplasm of retroperitoneum and peritoneum; C77.2 Secondary and unspecified malignant neoplasm of intra-abdominal lymph nodes; C78.7 Secondary malignant neoplasm of liver and intrahepatic bile duct; C78.00 Secondary malignant neoplasm of unspecified lung; N39.0 Urinary tract infection, site not specified; Z16.12 Extended spectrum beta lactamase (ESBL) resistance; E87.2 Acidosis; R57.9 Shock, unspecified; I10 Essential (primary) hypertension; E11.9 Type 2 diabetes mellitus without complications; J44.9 Chronic obstructive pulmonary disease, unspecified; K21.9 Gastro-esophageal reflux disease without esophagitis; B96.20 Unspecified Escherichia coli [E. coli] as the cause of diseases classified elsewhere; K57.10 Diverticulosis of small intestine without perforation or abscess without bleeding; E87.6 Hypokalemia; Z66 Do not resuscitate; Z51.5 Encounter for palliative care; Z87.891 Personal history of nicotine dependence; Z86.19 Personal history of other infectious and parasitic diseases; Z96.0 Presence of urogenital implants
CPT/HCPCS: J0131; J1100; J1650; P9016; P9047; Q9967